=== PATIENT | female | born 1960 | race Caucasian/White ===

== ENCOUNTER → 2016-12-07 | Outpatient (CLI) | payer BC ==
[~2016-12-07] MED LIST: ACET-2222 PO; ALPR0.5T7 PO; BUTA1CAP17 PO; BUTA1CAP3; CALC-656 PO; CYAN100071 PO; DCS100C PO; DICY20TA10 PO; ESTR1TAB24 PO; ESTR2TAB PO; FLUC200T5 PO; HYDR200T PO; HYDR200T46; IBP800T PO; LEVO250T7 PO; LOSA50TA36 PO; MIRA50TA PO; NF-ESOM40C PO; PANT40TA2 PO; PLAQUENIL PO; PROP40TA5; SUCR1TAB36 PO; TROS60CA2 PO; VALA500T4 PO; [UNRECOGNIZED DRUG - OTHER] PO
--- NOTE | 2016-12-07 12:15 | Diagnostic Imaging Report ---
Bilateral screening mammogram The current study was also evaluated with a Computer Aided Detection (CAD) system. INDICATION: Screening. No current complaints stated on the questionnaire. COMPARISON: 08/31/2015. FINDINGS: The breasts are composed of heterogeneously dense parenchyma which may decrease mammographic sensitivity. There are benign-appearing calcifications seen. Allowing for technique and positional differences, no suspicious change is seen. IMPRESSION: Dense breasts with no definite change. ACR BI-RADS Category 2: Benign findings. Result letter will be mailed to the patient. Note: At least 10% of breast cancer is not imaged by mammography. Dictated by: Dictated on workstation # [id number]
== END ==
LOC: RAD 07:17
PROVIDERS: ATTEND Obstetrics & Gynecology
DX: Z12.31 Encounter for screening mammogram for malignant neoplasm of breast (principal)
CPT/HCPCS: 77067

== ENCOUNTER 2016-12-10 12:50 | Observation (INO) | payer BC, OTHER ==
[2016-12-10] VITALS (8 sets, daily range): BP systolic 96–177; BP diastolic 58–99
[~2016-12-10] VITALS: Ht 157.5 cm; Wt 67.2 kg
[~2016-12-10 12:50] MED LIST changes: -ALPR0.5T7 PO; -BUTA1CAP17 PO; -BUTA1CAP3; -CYAN100071 PO; -DICY20TA10 PO; -ESTR2TAB PO; -FLUC200T5 PO; -HYDR200T PO; -HYDR200T46; -LOSA50TA36 PO; -MIRA50TA PO; -PANT40TA2 PO; -PROP40TA5; -SUCR1TAB36 PO
[2016-12-10] MEDS ORDERED: BUTA1CAP3 ×2 (13:05)
[2016-12-10] MEDS ORDERED: DICY20TA10 PO ×2 (13:05)
[2016-12-10] MEDS ORDERED: PROP40TA5 ×2 (13:05)
[2016-12-10] MEDS ORDERED: ALPR0.5T7 PO ×2 (13:05)
[2016-12-10] MEDS ORDERED: HYDR200T46 (13:05)
[2016-12-10 13:13] LABS: BASOPHILS % (AUTO) 1 % (0-10); EOSINOPHILS # (AUTO) 0.1 10^3/uL (0.0-0.3); EOSINOPHILS % (AUTO) 1 % (0-10); LYMPHOCYTES % (AUTO) 14 % (12-44); MEAN CORPUSCULAR HEMOGLOBIN 30 PG (25-34); MEAN CORPUSCULAR HGB CONC 35 G/DL (32-36); MEAN CORPUSCULAR VOLUME 85 FL (80-99); MEAN PLATELET VOLUME 9.2 FL (7.4-10.4); MONOCYTES # (AUTO) 0.4 X 10^3 (0.0-1.0); MONOCYTES % (AUTO) 5 % (0-12); NEUTROPHILS # (AUTO) 5.9 X 10^3 (1.8-7.8); NEUTROPHILS % (AUTO) 80 % (42-75); PLATELET COUNT 288 10^3/uL (130-400); RED BLOOD COUNT 4.49 10^6/uL (4.35-5.85); RED CELL DISTRIBUTION WIDTH 12.3 % (10.0-14.5); WHITE BLOOD COUNT 7.4 10^3/uL (4.3-11.0)
[2016-12-10] MEDS ORDERED: ASPIRIN 81 MG CHEW (CHILDREN'S ASA) PO ONE (13:15)
[2016-12-10] MEDS ORDERED: RX-NITROGLYCERIN 0.4 MG TAB BTL 25'S SL PRN (13:15)
--- NOTE | 2016-12-10 13:21 | ED Chest Pain ---
General Chief Complaint: Chest Pain Stated Complaint: KAYLEE SYLVIA Nursing Triage Note: ARRIVED VIA AMB TO ROOM 10 WITH MULTIPLE COMPLAINTS. STATES SHE HAS HAD CHEST PAIN OFF AND ON FOR 2 WEEKS, VOMITING OF BILE THIS AM, DIZZINESS/LIGHT HEADED FOR 2 WEEKS. AND ALSO STATES SHE IS DISORIENTED AT TIMES. Nursing Sepsis Screen: No Definite Risk Source: patient History of Present Illness Time seen by provider: 13:05 Initial Comments C/O CHEST PAIN OFF AND ON X 2-3 WEEKS IS A PRESSURE IN CENTER OF CHEST, AND OCCASIONALLY RADIATES INTO BACK PAIN HAD BEEN LASTING ABOUT AND HOUR AND THEN WOULD GO AWAY, BUT HAS BEEN CONSTANT AND GETTING WORSE SINCE 0800 YESTERDAY NOTHING WORSENS OR IMPROVES PAIN RATES PAIN 6/10 AT WORST, IS 4/10 NOW NO SHORTNESS OF BREATH NO PALPITATIONS NO DIZZINESS, BUT STATES SHE "FEELS DISORIENTED-LIKE I COULDN'T GET MY FOCUS" NO SWELLING IN LEGS/ FEET OR PAIN IN CALVES, AND NO RECENT TRAVEL NO SWEATS HAS HAD NAUSEA AND VOMITING SINCE 10 AM TODAY--VOMITED X 4-5 TODAY HAD 1 EPISODE OF DIARRHEA YESTERDAY AND 1 SMALL DIARRHEA STOOL TODAY NO ABDOMINAL PAIN C/O NUMBNESS AND TINGLING TO HANDS AND FEET OFF AND ON FOR A COUPLE OF WEEKS ALSO NO PRIOR HISTORY OF SIMILAR SYMPTOMS BEFORE [address] LAZO 3 WEEKS AGO AND BP MEDICATION DOSE WAS DECREASED BY HALF, BECAUSE OF THE ABOVE SYMPTOMS PT HAS LUPUS AND IS ON PLAQUENIL PCP: DR. LAZO Allergies and Home Medications Allergies Coded Allergies: No Known Drug Allergies (Unverified , 08/23/11) Home Medications Alprazolam 0.5 Mg Tablet, #30 (Reported) Butalbital/Aspirin/Caffeine 1 Each Capsule, #90 (Reported) Butalbital/Aspirin/Caffeine 1 Each Capsule, 2 EACH PO UD, (Reported) Cyanocobalamin (Vitamin B-12) 1,000 Mcg Tablet.er, 1,000 MCG PO DAILY, (Reported ) Dicyclomine HCl 20 Mg Tablet, #90 (Reported) Esomeprazole Mag Trihydrate 40 Mg Capsule.dr, 1 CAP PO DAILY, (Reported) Estradiol 1 Mg Tablet, 2 MG PO DAILY, (Reported) Estradiol 2 Mg Tablet, 2 MG PO DAILY, (Reported) Fluconazole 200 Mg Tablet, 200 MG PO DAILY, (Reported) Mirabegron 50 Mg Tab.er.24h, 50 MG PO DAILY, (Reported) Propranolol HCl 40 Mg Tablet, #30 (Reported) [Plaquenil] , 200 MG PO BID, (Reported) Review of Systems Constitutional: see HPI, No chills, No diaphoresis, malaise, other (DECREASED APPETITE FOR A COUPLE OF DAYS) Respiratory: No Symptoms Reported, Denies Cough, Denies Orthopnea, Denies Shortness of Air, Denies Wheezing Cardiovascular: See HPI, Chest Pain, Denies Edema, Denies Irregular Heart Rate , Denies Lightheadedness, Denies Palpitations, Denies Syncope Gastrointestinal: See HPI, Denies Abdominal Pain, Diarrhea, Nausea, Poor Appetite, Denies Poor Fluid Intake, Denies Vomiting Genitourinary: No Symptoms Reported Musculoskeletal: see HPI, back pain Skin: no symptoms reported Psychiatric/Neurological: See HPI, Paresthesia Endocrine: No Symptoms Reported Hematologic/Lymphatic: No Symptoms Reported Past Kqavtzp-Knpcjh-Wjlnlp Hx Patient Social History Alcohol Use: Rarely Uses Recreational Drug Use: No Smoking Status: Never a Smoker Recent Foreign Travel: No Contact w/Someone Who Travel: No Recent Infectious Disease Expo: No Recent Hopitalizations: No Surgeries HX Surgeries: Yes (HYST/BSO; BLADDER SLING; RIGHT FOOT SURGERY) Surgeries: Bladder Surgery, Gallbladder, Hysterectomy, Oophorectomy, Orthopedic Respiratory Hx Respiratory Disorders: No Cardiovascular Hx Cardiac Disorders: Yes Cardiac Disorders: Hypertension Neurological Hx Neurological Disorders: Yes Neurological Disorders: Headaches /Migraines Reproductive System Hx Reproductive Disorders: Yes (CYSTOCELE) Sexually Transmitted Disease: No MEDIA SENIOR RECRUITER History: Hysterectomy Genitourinary Hx Genitourinary Disorders: Yes (MEGGAN) Gastrointestinal Hx Gastrointestinal Disorders: Yes Gastrointestinal Disorders: Gastroesophageal Reflux Musculoskeletal Hx Musculoskeletal Disorders: Yes (LUPUS) Endocrine Hx Endocrine Disorders: Yes Endocrine Disorders: Lupus HEENT HX ENT Disorders: No Cancer Hx Cancer: No Psychosocial Hx Psychiatric Problems: No Blood Transfusions Hx Blood Disorders: No Physical Exam Vital Signs Vital Sign - Last 12Hours 12/10/16 12:50 Temp 98.5 Pulse 91 Resp 16 B/P (MAP) 145/94 Pulse Ox 95 O2 Delivery Room Air Capillary Refill : Less Than 3 Seconds General Appearance: No Apparent Distress, WD/WN, Anxious HEENT: PERRL/EOMI Neck: Full Range of Motion, Normal Inspection, Non Tender, Supple, No Carotid Bruit, No JVD Respiratory: Chest Non Tender, Normal Breath Sounds, No Accessory Muscle Use, No Respiratory Distress Cardiovascular: Regular Rate, Rhythm, No Edema, No Gallop, No JVD, No Murmur, Normal Peripheral Pulses Gastrointestinal: Normal Bowel Sounds, No Organomegaly, No Pulsatile Mass, Non Tender, Soft Extremity: Normal Capillary Refill, Normal Inspection, Normal Range of Motion, Non Tender, No Calf Tenderness, No Pedal Edema Neurologic/Psychiatric: Alert, Oriented x3, No Motor/Sensory Deficits, media coordinator II- XII Norm as Tested, Other (ANXIOUS) Skin: Normal Color, Warm/Dry Progress/Results/Core Measures Results/Orders Lab Results Laboratory Tests Test 12/10/16 13:06 Range/Units White Blood Count 7.4 4.3-11.0 10^3/uL Red Blood Count 4.49 4.35-5.85 10^6/uL Hemoglobin 13.4 11.5-16.0 G/DL Hematocrit 38 35-52 % Mean Corpuscular Volume 85 80-99 FL Mean Corpuscular Hemoglobin 30 25-34 PG Mean Corpuscular Hemoglobin Concent 35 32-36 G/DL Red Cell Distribution Width 12.3 10.0-14.5 % Platelet Count 288 130-400 10^3/uL Mean Platelet Volume 9.2 7.4-10.4 FL Neutrophils (%) (Auto) 80 H 42-75 % Lymphocytes (%) (Auto) 14 12-44 % Monocytes (%) (Auto) 5 0-12 % Eosinophils (%) (Auto) 1 0-10 % Basophils (%) (Auto) 1 0-10 % Neutrophils # (Auto) 5.9 1.8-7.8 X 10^3 Lymphocytes # (Auto) 1.0 1.0-4.0 X 10^3 Monocytes # (Auto) 0.4 0.0-1.0 X 10^3 Eosinophils # (Auto) 0.1 0.0-0.3 10^3/uL Basophils # (Auto) 0.0 0.0-0.1 10^3/uL Prothrombin Time 12.2 12.2-14.7 SEC INR Comment 0.9 0.8-1.4 Activated Partial Thromboplast Time 26 24-35 SEC Sodium Level 138 135-145 MMOL/L Potassium Level 3.7 3.6-5.0 MMOL/L Chloride Level 103 98-107 MMOL/L Carbon Dioxide Level 24 21-32 MMOL/L Anion Gap 11 5-14 MMOL/L Blood Urea Nitrogen 11 7-18 MG/DL Creatinine 0.78 0.60-1.30 MG/DL Estimat Glomerular Filtration Rate > 60 BUN/Creatinine Ratio 14 Glucose Level 95 70-105 MG/DL Calcium Level 9.6 8.5-10.1 MG/DL Magnesium Level 1.9 1.8-2.4 MG/DL Total Bilirubin 0.4 0.1-1.0 MG/DL Aspartate Amino Transf (AST/SGOT) 19 5-34 U/L Alanine Aminotransferase (ALT/SGPT) 17 0-55 U/L Alkaline Phosphatase 93 40-136 U/L Total Creatine Kinase 73 29-168 U/L Creatine Kinase MB 1.6 <6.6 NG/ML Troponin I < 0.30 <0.30 NG/ML B-Type Natriuretic Peptide 63.5 <100.0 PG/ML Total Protein 7.3 6.4-8.2 GM/DL Albumin 4.3 3.2-4.5 GM/DL Amylase Level 82 25-125 U/L Lipase 13 8-78 U/L My Orders Orders - CINDILEVY K DO Amylase (12/10/16 13:04) Cbc With Automated Diff (12/10/16 13:04) Comprehensive Metabolic Panel (12/10/16 13:04) Creatine Kinase (12/10/16 13:04) Creatine Kinase Mb (12/10/16 13:04) Lipase (12/10/16 13:04) Partial Thromboplastin Time (12/10/16 13:04) Protime With Inr (12/10/16 13:04) Troponin I (12/10/16 13:04) Chest 1 View, Ap/Pa Only (12/10/16 13:04) O2 (12/10/16 13:04) Ekg Tracing (12/10/16 13:04) Aspirin Chewable Tablet (Baby Aspirin Ch (12/10/16 13:15) Rx-Nitroglycerin Sl Tabs (Rx-Nitrostat S (12/10/16 13:15) BNP (12/10/16 13:04) Monitor-Rhythm Ecg Trace Only (12/10/16 13:04) Saline Lock/Iv-Start (12/10/16 13:04) Magnesium (12/10/16 13:04) Ketorolac Injection (Toradol Injection) (12/10/16 13:40) Ct Angio Chest W (12/10/16 13:59) Medications Given in ED Current Medications Medications Dose Ordered Sig/Yovanny Route Start Time Stop Time Status Last Admin Dose Admin Aspirin 324 mg ONCE ONCE PO 12/10/16 13:15 12/10/16 13:16 DC 12/10/16 13:19 324 MG Nitroglycerin 0.4 mg UD PRN SL 12/10/16 13:15 12/10/16 13:20 0.4 MG Vital Signs/I&O Vital Sign - Last 12Hours 12/10/16 12:50 Temp 98.5 Pulse 91 Resp 16 B/P (MAP) 145/94 Pulse Ox 95 O2 Delivery Room Air Blood Pressure Mean: 111 Progress Note : Progress Note GIVEN NTG X 1--STATES INITIALLY IT MADE HER PAIN WORSE, THEN PAIN WENT BACK DOWN TO WHERE IT STARTED AT 4/10. GIVEN TORADOL WITH RESOLUTION OF PAIN AND NAUSEA ECG Initial ECG Impression Time: 13:02 Initial ECG Rate: 86 Initial ECG Rhythm: Normal Sinus Initial ECG Comparisson: No Previous ECG Available Diagnostic Imaging Comments CXR--NO ACUTE PROCESS CT CHEST ANGIOGRAM--NO ACUTE PROCESS, PER RADIOLOGIST REPORT @ 1532 Reviewed: Reviewed by Me Departure Communication Progress Notes 1505--SPOKE WITH DR. GIRARD, ACCEPTS PT FOR ADMIT. WOULD LIKE CARDIOLOGY CONSULTED 8898--SPOKE WITH DR. CALIXTO FOR CARDIOLOGY CONSULT Impression Impression: Primary Impression: Chest pain Disposition: ADMITTED INPATIENT Condition: Improved Decision to Admit Reason: Admit from ER (General) Decision to Admit/Date: Dec 10, 2016 Time/Decision to Admit Time: 15:05 Departure-Patient Inst. Referrals: LA LAZO MD (PCP/Family) Primary Care Physician LEVY PUENTE DO Dec 10, 2016 13:21
[2016-12-10 13:30] LABS: INR 0.9 (0.8-1.4); PROTHROMBIN TIME PATIENT 12.2 SEC (12.2-14.7)
[2016-12-10] MEDS ORDERED: KETOROLAC 30 MG/ML VIAL IVP STA (13:40)
[2016-12-10 13:44] LABS: ALANINE AMINOTRANSFERASE 17 U/L (0-55); ALBUMIN 4.3 GM/DL (3.2-4.5); AMYLASE 82 U/L (25-125); ANION GAP 11 MMOL/L (5-14); ASPARTATE AMINO TRANSFERASE 19 U/L (5-34); BILIRUBIN,TOTAL 0.4 MG/DL (0.1-1.0); BLOOD UREA NITROGEN 11 MG/DL (7-18); BUN/CREATININE RATIO 14; CALCIUM 9.6 MG/DL (8.5-10.1); CARBON DIOXIDE 24 MMOL/L (21-32); CHLORIDE 103 MMOL/L (98-107); CREATINE KINASE 73 U/L (29-168); CREATININE SERUM 0.78 MG/DL (0.60-1.30); GFR ESTIMATED > 60; GLUCOSE 95 MG/DL (70-105); LIPASE 13 U/L (8-78); MAGNESIUM 1.9 MG/DL (1.8-2.4); POTASSIUM 3.7 MMOL/L (3.6-5.0); SODIUM 138 MMOL/L (135-145); TOTAL PROTEIN 7.3 GM/DL (6.4-8.2)
[2016-12-10 13:51] LABS: TROPONIN I < 0.30 NG/ML (<0.30)
--- NOTE | 2016-12-10 14:11 | Diagnostic Imaging Report ---
INDICATION: Chest pain for a few weeks. TECHNIQUE: Single view chest 1:39 PM. CORRELATION STUDY: 05/22/2013 FINDINGS: The heart size, mediastinal configuration and pulmonary vascularity are within normal limits. The lungs are clear with no consolidating infiltrate. There is no significant effusion or pneumothorax. IMPRESSION: 1. Negative portable chest. Dictated by: Dictated on workstation # [id number]
[2016-12-10] MEDS ORDERED: NS 100 ML (IVPB) BAG IV ONE (14:15)
[2016-12-10] MEDS ORDERED: IOHEXOL 350 MG/ML 150 ML (OMNIPAQUE 350) VIAL IV ONE (14:15)
--- NOTE | 2016-12-10 15:21 | Diagnostic Imaging Report ---
PROCEDURE: CT angiography of the chest with contrast. TECHNIQUE: Multiple contiguous axial images were obtained through the chest after uneventful bolus administration of intravenous contrast. Reconstructed CTA MIP acquisitions were also performed. INDICATION: Intermittent chest pain x2 weeks. Increasing severity recently and constant today. CORRELATION STUDY: Chest radiograph 12/10/2016. FINDINGS: Pulmonary arteries demonstrate normal contrast filling. The thoracic aorta unremarkable without filling defect or aneurysm. Heart size upper limits of normal. No pathologically enlarged mediastinal lymph nodes. A few shoddy lymph nodes are present. There is also very slight soft tissue prominence of the hilar structures. Lung martínez are clear. Likely some areas of fibrosis or atelectasis about the lingula adjacent to fissure plane. Visualized portion of upper abdomen unremarkable. There may be some degree of fatty infiltration of the liver parenchyma. Osseous structures without acute findings. IMPRESSION: Negative for pulmonary embolism. No CT evidence for acute abnormality of the chest. Dictated by: Dictated on workstation # [id number]
[2016-12-10] MEDS ORDERED: ENOXAPARIN 80 MG/0.8 ML (LOVENOX) SYR SC ONE (15:45)
--- NOTE | 2016-12-10 16:35 | Consultation-Cardiology ---
HPI-Cardiology Cardiology Consultation Date of Consultation 12/10/16 Date of Admission Time Seen by Provider: 16:30 Indication: chest pain HPI 56 years old lady with history of irritable bowel syndrome, gastroesophageal reflux disease, has been having recurrent episodes of chest pain for the last month described it as dull achiness in the retrosternal area radiating to the back associated with mild numbness in her arm and lightheadedness. Yesterday had pain persisted the whole day and recurred this morning, came into the emergency room and responded to Toradol. Feeling better at this time, denied any active pain. Denied any radiation to the neck or shoulders, no associated shortness of breath or palpitation, had mild lightheadedness and dizziness with the episodes. Patient has a strong family history of heart disease, last cardiac workup was done in 2007. Home Medications & Allergies Allergies: Coded Allergies: No Known Drug Allergies (Unverified , 08/23/11) Home Medication List Reviewed: Yes HDA-Mqrbnk-Jagtrz Hx Patient Social History Marital Status: Alcohol Use: Rarely Uses Recreational Drug Use: No Smoking Status: Never a Smoker Recent Foreign Travel: No Recent Infectious Disease Expo: No Recent Hopitalizations: No Past Medical History Past medical history as discussed below Family Medical History Family Medical Hx Strong family history of heart disease including her father and brother Constitutional: see HPI, malaise, weakness EENTM: no symptoms reported, see HPI Respiratory: see HPI, No cough, No dyspnea on exertion, No hemoptysis, No orthopnea, No phlegm, No short of breath, No stridor, No wheezing, No other Cardiovascular: see HPI, chest pain, No edema, No Hx of Intervention, No palpitations, No syncope, No vascular heart diseas, No other Gastrointestinal: see HPI, heartburn, nausea, vomiting Genitourinary: no symptoms reported, see HPI Musculoskeletal: see HPI, joint pain, muscle pain Skin: see HPI Psychiatric/Neurological: No Symptoms Reported, See HPI Reviewed Test Results Reviewed Test Results Lab Laboratory Tests Test 12/10/16 13:06 Range/Units White Blood Count 7.4 4.3-11.0 10^3/uL Red Blood Count 4.49 4.35-5.85 10^6/uL Hemoglobin 13.4 11.5-16.0 G/DL Hematocrit 38 35-52 % Mean Corpuscular Volume 85 80-99 FL Mean Corpuscular Hemoglobin 30 25-34 PG Mean Corpuscular Hemoglobin Concent 35 32-36 G/DL Red Cell Distribution Width 12.3 10.0-14.5 % Platelet Count 288 130-400 10^3/uL Mean Platelet Volume 9.2 7.4-10.4 FL Neutrophils (%) (Auto) 80 H 42-75 % Lymphocytes (%) (Auto) 14 12-44 % Monocytes (%) (Auto) 5 0-12 % Eosinophils (%) (Auto) 1 0-10 % Basophils (%) (Auto) 1 0-10 % Neutrophils # (Auto) 5.9 1.8-7.8 X 10^3 Lymphocytes # (Auto) 1.0 1.0-4.0 X 10^3 Monocytes # (Auto) 0.4 0.0-1.0 X 10^3 Eosinophils # (Auto) 0.1 0.0-0.3 10^3/uL Basophils # (Auto) 0.0 0.0-0.1 10^3/uL Prothrombin Time 12.2 12.2-14.7 SEC INR Comment 0.9 0.8-1.4 Activated Partial Thromboplast Time 26 24-35 SEC Sodium Level 138 135-145 MMOL/L Potassium Level 3.7 3.6-5.0 MMOL/L Chloride Level 103 98-107 MMOL/L Carbon Dioxide Level 24 21-32 MMOL/L Anion Gap 11 5-14 MMOL/L Blood Urea Nitrogen 11 7-18 MG/DL Creatinine 0.78 0.60-1.30 MG/DL Estimat Glomerular Filtration Rate > 60 BUN/Creatinine Ratio 14 Glucose Level 95 70-105 MG/DL Calcium Level 9.6 8.5-10.1 MG/DL Magnesium Level 1.9 1.8-2.4 MG/DL Total Bilirubin 0.4 0.1-1.0 MG/DL Aspartate Amino Transf (AST/SGOT) 19 5-34 U/L Alanine Aminotransferase (ALT/SGPT) 17 0-55 U/L Alkaline Phosphatase 93 40-136 U/L Total Creatine Kinase 73 29-168 U/L Creatine Kinase MB 1.6 <6.6 NG/ML Troponin I < 0.30 <0.30 NG/ML B-Type Natriuretic Peptide 63.5 <100.0 PG/ML Total Protein 7.3 6.4-8.2 GM/DL Albumin 4.3 3.2-4.5 GM/DL Amylase Level 82 25-125 U/L Lipase 13 8-78 U/L Physical Exam Vital Signs Vital Sign - Last 12Hours 12/10/16 12:50 Temp 98.5 Pulse 91 Resp 16 B/P (MAP) 145/94 Pulse Ox 95 O2 Delivery Room Air Capillary Refill : Less Than 3 Seconds General Appearance: No Apparent Distress, WD/WN Eyes: Bilateral Eye EOMI, Bilateral Eye Normal Inspection, Bilateral Eye PERRL HEENT: PERRL/EOMI, TMs Normal, Normal ENT Inspection, Pharynx Normal Neck: Full Range of Motion, Normal Inspection, Non Tender, Supple, Carotid Bruit Respiratory: Chest Non Tender, Lungs Clear, Normal Breath Sounds, No Accessory Muscle Use, No Respiratory Distress Cardiovascular: Regular Rate, Rhythm, No Edema, No Gallop, No JVD, No Murmur, Normal Peripheral Pulses Gastrointestinal: Normal Bowel Sounds, No Organomegaly, No Pulsatile Mass, Non Tender, Soft Back: Normal Inspection, No CVA Tenderness, No Vertebral Tenderness Extremity: Normal Capillary Refill, Normal Inspection, Normal Range of Motion, Non Tender, No Calf Tenderness, No Pedal Edema Neurologic/Psychiatric: Alert, Oriented x3, No Motor/Sensory Deficits, Normal Mood/Affect Skin: Normal Color, Warm/Dry Lymphatic: No Adenopathy A/P-Cardiology Admission Diagnosis Chest pain nonspecific etiology Migraine headache Hypertension Gastroesophageal reflux disease Abnormal EKG Assessment/Plan Chest pain nonspecific etiology, atypical in presentation, EKG showed sinus rhythm with right axis deviation, right ventricular hypertrophy pattern. Nonspecific T wave abnormality noted diffusely. First set of cardiac enzymes are normal, I will continue monitoring and start her on Lovenox and aspirin for now. Hypertension, restart home medication and monitor blood pressure. History of migraine headache. Continue to monitor Gastroesophageal reflux disease, maintained on Nexium. Continue to monitor Irritable bowel syndrome Systemic Lupus erythematous Strong family history of heart disease History of cholecystectomy. Clinical Quality Measures AMI/AHF: ASA po Prior to arrival: TIM Jama MD Dec 10, 2016 16:35
[2016-12-10] MEDS ORDERED: PANTOPRAZOLE 40 MG (PROTONIX) TAB PO NR (16:45)
[2016-12-10] MEDS ORDERED: ENOXAPARIN 100 MG/1 ML (LOVENOX) SYR SC SCH (16:45)
[2016-12-10] MEDS ORDERED: ENOXAPARIN 80 MG/0.8 ML (LOVENOX) SYR SC SCH (17:00)
[2016-12-10] MEDS ORDERED: NITROGLYCERIN SUBLINGUAL 0.4 MG TAB (NITROSTAT) SL PRN (20:30)
[2016-12-10] MEDS ORDERED: morphine INJ 4 MG/ML 1 ML (VIAL/SYRINGE) IV PRN (20:30)
[2016-12-10] MEDS: PROPRANOLOL 20 MG (INDERAL) TABLET PO SCH (21:19)
[2016-12-10] MEDS ORDERED: BUTA1CAP17 PO ×2 (23:44)
[2016-12-10] MEDS ORDERED: MIRA50TA PO ×2 (23:44)
[2016-12-10] MEDS ORDERED: FLUC200T5 PO ×2 (23:44)
[2016-12-10] MEDS ORDERED: CYAN100071 PO ×2 (23:44)
[2016-12-10] MEDS ORDERED: ESTR2TAB PO ×2 (23:44)
[2016-12-11] VITALS: BP 125/84
[2016-12-11 04:00] VITALS: BP 114/74
[2016-12-11 04:45] LABS: BASOPHILS # (AUTO) 0.1 10^3/uL (0.0-0.1); BASOPHILS % (AUTO) 2 % (0-10); EOSINOPHILS # (AUTO) 0.2 10^3/uL (0.0-0.3); EOSINOPHILS % (AUTO) 5 % (0-10); LYMPHOCYTES # (AUTO) 1.6 X 10^3 (1.0-4.0); LYMPHOCYTES % (AUTO) 30 % (12-44); MEAN CORPUSCULAR HEMOGLOBIN 30 PG (25-34); MEAN CORPUSCULAR HGB CONC 35 G/DL (32-36); MEAN CORPUSCULAR VOLUME 86 FL (80-99); MEAN PLATELET VOLUME 9.4 FL (7.4-10.4); MONOCYTES # (AUTO) 0.5 X 10^3 (0.0-1.0); MONOCYTES % (AUTO) 10 % (0-12); NEUTROPHILS # (AUTO) 2.7 X 10^3 (1.8-7.8); NEUTROPHILS % (AUTO) 53 % (42-75); PLATELET COUNT 241 10^3/uL (130-400); RED BLOOD COUNT 4.17 10^6/uL (4.35-5.85); RED CELL DISTRIBUTION WIDTH 12.2 % (10.0-14.5); WHITE BLOOD COUNT 5.1 10^3/uL (4.3-11.0)
[2016-12-11 05:21] LABS: ALANINE AMINOTRANSFERASE 15 U/L (0-55); ALBUMIN 3.8 GM/DL (3.2-4.5); ANION GAP 11 MMOL/L (5-14); ASPARTATE AMINO TRANSFERASE 16 U/L (5-34); BILIRUBIN,TOTAL 0.4 MG/DL (0.1-1.0); BLOOD UREA NITROGEN 11 MG/DL (7-18); BUN/CREATININE RATIO 14; CALCIUM 9.3 MG/DL (8.5-10.1); CARBON DIOXIDE 25 MMOL/L (21-32); CHLORIDE 103 MMOL/L (98-107); CHOLESTEROL 177 MG/DL (< 200); CREATININE SERUM 0.81 MG/DL (0.60-1.30); DIRECT LDL 105 MG/DL (1-129); GFR ESTIMATED > 60; GLUCOSE 90 MG/DL (70-105); POTASSIUM 3.2 MMOL/L (3.6-5.0); SODIUM 139 MMOL/L (135-145); TOTAL PROTEIN 6.4 GM/DL (6.4-8.2); TRIGLYCERIDES 210 MG/DL (<150); VLDL CHOLESTEROL 42 MG/DL (5-40)
[2016-12-11 05:42] LABS: THYROID STIMULATING HORMONE 1.68 UIU/ML (0.35-4.94); TROPONIN I < 0.30 NG/ML (<0.30)
[2016-12-11] MEDS: PROPRANOLOL 20 MG (INDERAL) TABLET PO SCH (06:35)
[2016-12-11] MEDS ORDERED: PANTOPRAZOLE 40 MG (PROTONIX) TAB PO SCH (07:00)
[2016-12-11 08:37] VITALS: BP 126/80
--- NOTE | 2016-12-11 08:57 | Cardiology Progress Note ---
Subjective Date Seen by Provider: Dec 11, 2016 Time Seen by Provider: 08:55 Subjective/Events-last exam patient is feeling better, had mild chest pain earlier, described it as burning sensation in the retrosternal area, no shortness of breath, no other associated symptoms. Review of Systems General: No Chills, No Night Sweats, No Fatigue, No Malaise, No Appetite, No Other HEENT: No Head Aches, No Visual Changes, No Eye Pain, No Ear Pain, No Dysphasia , No Sinus Congestion, No Post Nasal Drip, No Sore Throat, No Other Pulmonary: No Dyspnea, No Cough, No Pleuritic Chest Pain, No Other Cardiovascular: Chest Pain, No: Edema, Lt Headedness, Orthopnea, Other, Palpitations, Paroxysmal Noc. Dyspnea Objective-Cardiology Exam Last Set of Vital Signs Vital Signs 12/11/16 08:37 Temp 98.7 Pulse 72 Resp 12 B/P (MAP) 126/80 Pulse Ox 96 O2 Delivery Room Air Capillary Refill : Less Than 3 Seconds I&O Bad tableGeneral: Alert, Oriented X3, Cooperative HEENT: Atraumatic, PERRLA Neck: Supple, No JVD, No Thyromegaly Lungs: Clear to Auscultation, Normal Air Movement Heart: Regular Rate, Normal S1, Normal S2, No Murmurs Abdomen: Normal Bowel Sounds, Soft, No Tenderness, No Hepatosplenomegaly, No Masses Extremities: No Clubbing, No Cyanosis, No Edema, Normal Pulses, No Tenderness/ Swelling Skin: No Rashes, No Breakdown, No Significant Lesion Neuro: Normal Gait, Normal Speech, Strength at 5/5 X4 Ext, Normal Tone, Sensation Intact Psych/Mental Status: Mental Status NL, Mood NL Results Lab Laboratory Tests 12/10/16 13:06 12/11/16 03:40 A/P-Cardiology Admission Diagnosis Chest pain nonspecific etiology Migraine headache Hypertension Gastroesophageal reflux disease Abnormal EKG Assessment/Plan Chest pain nonspecific etiology, atypical in presentation, EKG showed sinus rhythm with right axis deviation, right ventricular hypertrophy pattern. Nonspecific T wave abnormality noted diffusely, cardiac enzymes are negative, feeling better, it appear to be more of atypical pain. We discussed the management plan recommended stress test as an outpatient. Patient had history of gastroesophageal reflux disease, did not have any workup for the last 9 years , recommended reevaluation with EGD. I offered the patient to keep her here versus returning as an outpatient tomorrow for stress test, patient requested to go home. Hypertension, Continue to monitor blood pressure, continue home medications History of migraine headache. Continue to monitor Gastroesophageal reflux disease, maintained on Nexium. Continue to monitor Irritable bowel syndrome Systemic Lupus erythematous Strong family history of heart disease History of cholecystectomy. Clinical Quality Measures AMI/AHF: ASA po Prior to arrival: No DVT/VTE Risk/Contraindication: Risk Factor Score Per Nursin RFS Level Per Nursing on Admit: 1=Low/No VTE PPX TIM CALIXTO MD Dec 11, 2016 08:57
[2016-12-11] MEDS ORDERED: ENOXAPARIN 80 MG/0.8 ML (LOVENOX) SYR SC SCH (09:00)
[2016-12-11] MEDS ORDERED: ASPIRIN E.C. 81 MG (ECOTRIN) TAB PO SCH (09:00)
[2016-12-11] MEDS ORDERED: ASPIRIN E.C. 325 MG (ECOTRIN) TABLET PO SCH (09:00)
--- NOTE | 2016-12-11 09:01 | Clinic Account Progress/Dx ---
Clinic Account Progress/Dx DIAGNOSIS: Date Seen by Provider: Dec 11, 2016 Time Seen by Provider: 09:01 Diagnosis Anterior chest wall pain Hypertension Systemic lupus erythematous Abnormal EKG Family history of heart disease TIM CALIXTO MD Dec 11, 2016 09:01
--- NOTE | 2016-12-11 10:55 | Short Stay Summary-Hospitalist ---
HPI History of Present Illness: HPI/Chief Complaint Patient not seen, Cardiology evaluated the patient and placed note and DC patient. Date Seen 12/11/16 Time Seen by Provider: 00:00 Attending Physician Lana Delgado Floyd R MD Referring Physician Date of Admission Dec 10, 2016 at 15:35 Home Medications & Allergies Home Medications Reviewed patient Home Medication Reconciliation Form Allergies Allergies Coded Allergies No Known Drug Allergies (Unverified08/23/11) Past Unrhwon-Uowkrn-Yzgpyc Hx Patient Social History Marrital Status: Alcohol Use: Denies Use Recreational Drug Use: No Smoking Status: Never a Smoker Physical Abuse Screen: No Sexual Abuse: No Recent Foreign Travel: No Contact w/other who traveled: No Recent Hopitalizations: No Recent Infectious Disease Expo: No Seasonal Allergies Seasonal Allergies: No Surgeries HX Surgeries: Yes (HYST/BSO; BLADDER SLING; RIGHT FOOT SURGERY) Surgeries: Bladder Surgery, Gallbladder, Hysterectomy, Oophorectomy, Orthopedic Respiratory Hx Respiratory Disorders: No Cardiovascular Hx Cardiovascular Disorders: Yes Cardiac Disorders: Hypertension Neurological Hx Neurological Disorders: Yes Neurological Disorders: Headaches /Migraines Reproductive System Hx Reproductive Disorders: Yes (CYSTOCELE) Sexually Transmitted Disease: No Genitourinary Hx Genitourinary Disorders: Yes (MEGGAN) Gastrointestinal Hx Gastrointestinal Disorders: Yes Gastrointestinal Disorders: Gastroesophageal Reflux, Chronic Diarrhea, Gall Bladder Disease, Irritable Bowel Musculoskeletal Hx Musculoskeletal Disorders: Yes (LUPUS) Endocrine Hx Endocrine Disorders: Yes Endocrine Disorders: Lupus HEENT HX ENT Disorders: No Cancer Hx Cancer: No Psychosocial Hx Psychiatric Problems: No Integumentary Skin/Integumentary Disorders: Psoriasis Blood Transfusions Hx Blood Disorders: No Review of Systems Constitutional: see HPI Physical Exam Physical Exam Vital Signs Vital Sign - Last 12Hours 12/10/16 12:50 Temp 98.5 Pulse 91 Resp 16 B/P (MAP) 145/94 Pulse Ox 95 O2 Delivery Room Air Capillary Refill : Less Than 3 Seconds General Appearance: Other (not examined) Results Results/Procedures Lab Laboratory Tests 12/10/16 13:06 12/11/16 03:40 Short Stay Diagnosis Discharge Diagnosis-Short Stay Admission Diagnosis chest pain Final Discharge Diagnosis chest pain Conclusion Plan DC per Cardiology EST scheduled Clinical Quality Measures AMI/AHF: ASA po Prior to arrival: No DVT/VTE Risk/Contraindication: Risk Factor Score Per Nursin RFS Level Per Nursing on Admit: 1=Low/No VTE PPX LANA DELGADO DO Dec 11, 2016 10:55
--- OUTSIDE RECORDS SUMMARY | 2016-12-13 09:32 | XMS REPORT | Continuity of Care Document ---
Author Author [facility] Organization [facility] Address Unknown Phone Unavailable Allergies Active Description Code Type Severity Reaction Onset Reported/Identified Relationship to Patient Clinical Status Yes No Known Drug Allergies [id number] Drug Allergy Unknown N/ A 08/23/2011 Medications Problems Date Dx Coded Attending Type Code Diagnosis Diagnosed By 05/26/2014 MORGAN SANCHEZ MD, Ot V76.12 09/16/2015 MORGAN SACNHEZ MD, Ot Z12.31 01/01/2016 MORGAN SANCHEZ MD, Ot Z12.31 ENCNTR SCREEN MAMMOGRAM FOR MALIGNANT NE 12/07/2016 MORGAN SANCHEZ MD, Ot Z12.31 ENCNTR SCREEN MAMMOGRAM FOR MALIGNANT NE 12/08/2016 MORGAN SANCHEZ MD, Ot Z12.31 ENCNTR SCREEN MAMMOGRAM FOR MALIGNANT NE 12/10/2016 MORGAN SANCHEZ MD, Ot Z12.31 ENCNTR SCREEN MAMMOGRAM FOR MALIGNANT NE 12/10/2016 MORGAN SANCHEZ MD, Ot Z12.31 ENCNTR SCREEN MAMMOGRAM FOR MALIGNANT NE Procedures Results Test Result Range Complete blood count (CBC) with automated white blood cell (WBC) differential - 12/10/16 13:06 Blood leukocytes automated count (number/volume) 7.4 10*3/ uL 4.3-11.0 Blood erythrocytes automated count (number/volume) 4.49 10*6 /uL 4.35-5.85 Venous blood hemoglobin measurement (mass/volume) 13.4 g/dL 11.5-16.0 Blood hematocrit (volume fraction) 38 % 35-52 Automated erythrocyte mean corpuscular volume 85 [foz_us] 80-99 Automated erythrocyte mean corpuscular hemoglobin (mass per erythrocyte) 30 pg 25-34 Automated erythrocyte mean corpuscular hemoglobin concentration measurement ( mass/volume) 35 g/dL 32-36 Automated erythrocyte distribution width ratio 12.3 % 10.0-14.5 Automated blood platelet count (count/volume) 288 10*3/uL 130-400 Automated blood platelet mean volume measurement 9.2 [foz_us ] 7.4-10.4 Automated blood neutrophils/100 leukocytes 80 % 42-75 Automated blood lymphocytes/100 leukocytes 14 % 12-44 Blood monocytes/100 leukocytes 5 % 0-12 Automated blood eosinophils/100 leukocytes 1 % 0-10 Automated blood basophils/100 leukocytes 1 % 0-10 Blood neutrophils automated count (number/volume) 5.9 10*3 1.8-7.8 Blood lymphocytes automated count (number/volume) 1.0 10*3 1.0-4.0 Blood monocytes automated count (number/volume) 0.4 10*3 0.0-1.0 Automated eosinophil count 0.1 10*3/uL 0.0-0.3 Automated blood basophil count (count/volume) 0.0 10*3/uL 0.0-0.1 PT panel in platelet poor plasma by coagulation assay - 12/10/16 13:06 Prothrombin time (PT) in platelet poor plasma by coagulation assay 12.2 s 12.2-14.7 INR in platelet poor plasma or blood by coagulation assay 0.9 0.8-1.4 Activated partial thromboplastin time (aPTT) in platelet poor plasma bycoagulation assay - 12/10/16 13:06 Activated partial thromboplastin time (aPTT) in platelet poor plasma bycoagulation assay 26 s 24-35 Comprehensive metabolic panel - 12/10/16 13:06 Serum or plasma sodium measurement (moles/volume) 138 mmol/ L 135-145 Serum or plasma potassium measurement (moles/volume) 3.7 mmol/L 3.6-5.0 Serum or plasma chloride measurement (moles/volume) 103 mmol /L 98-107 Carbon dioxide 24 mmol/L 21-32 Serum or plasma anion gap determination (moles/volume) 11 mmol/L 5-14 Serum or plasma urea nitrogen measurement (mass/volume) 11 mg/dL 7-18 Serum or plasma creatinine measurement (mass/volume) 0.78 mg /dL 0.60-1.30 Serum or plasma urea nitrogen/creatinine mass ratio 14 NRG Serum or plasma creatinine measurement with calculation of estimated glomerular filtration rate > NRG Serum or plasma glucose measurement (mass/volume) 95 mg/dL 70-105 Serum or plasma calcium measurement (mass/volume) 9.6 mg/dL 8.5-10.1 Serum or plasma total bilirubin measurement (mass/volume) 0.4 mg/dL 0.1-1.0 Serum or plasma alkaline phosphatase measurement (enzymatic activity/volume) 93 U/L 40-136 Serum or plasma aspartate aminotransferase measurement (enzymatic activity/ volume) 19 U/L 5-34 Serum or plasma alanine aminotransferase measurement (enzymatic activity/volume ) 17 U/L 0-55 Serum or plasma protein measurement (mass/volume) 7.3 g/dL 6.4-8.2 Serum or plasma albumin measurement (mass/volume) 4.3 g/dL 3.2-4.5 Magnesium - 12/10/16 13:06 Magnesium 1.9 mg/dL 1.8-2.4 Serum or plasma creatine kinase measurement (enzymatic activity/volume) - 12/10 13:06 Serum or plasma creatine kinase measurement (enzymatic activity/volume) 73 U/L 29-168 Serum or plasma creatine kinase MB measurement (enzymatic activity/volume) - 13:06 Serum or plasma creatine kinase MB measurement (enzymatic activity/volume) 1.6 ng/mL <6.6 Serum or plasma troponin i.cardiac measurement (mass/volume) - 12/10/16 13:06 Serum or plasma troponin i.cardiac measurement (mass/volume) < ng/mL <0.30 Serum or plasma lithium measurement (moles/volume) - 12/10/16 13:06 BNP level 63.5 pg/mL <100.0 Serum or plasma amylase measurement (enzymatic activity/volume) - 12/10/16 13: 06 Serum or plasma amylase measurement (enzymatic activity/volume) 82 U/L 25-125 Lipase - 12/10/16 13:06 Lipase 13 U/L 8-78 Serum or plasma troponin i.cardiac measurement (mass/volume) - 12/10/16 20:10 Serum or plasma troponin i.cardiac measurement (mass/volume) < ng/mL <0.30 Encounters ACCT No. Visit Date/Time Discharge Status Pt. Type Provider Facility Loc./Unit Complaint [id number] 05/06/2014 14:22:00 2013 23:59:59 CLS Outpatient LAURA SCHAEFER, MORGAN [facility] RAD [id number] 05/22/2013 11:42:00 2012 23:59:59 CLS Outpatient [id number] 04/12/2013 13:27:00 2012 23:59:59 CLS Outpatient [id number] 12/18/2012 13:02:00 2012 23:59:59 CLS Outpatient [id number] 12/10/2016 15:35:00 ACT Inpatient MARIELY GIRARD DO [facility] ICU CHEST PAIN [id number] 12/07/2016 07:17:00 ACT Outpatient MORGAN SANCHEZ MD [facility] RAD SCREENING [id number] 08/31/2015 14:37:00 ACT Outpatient MORGAN SANCHEZ MD [facility] RAD SCREENING
--- OUTSIDE RECORDS SUMMARY | 2016-12-13 09:48 | XMS REPORT | Continuity of Care Document ---
Author Author [facility] Organization [facility] Address Unknown Phone Unavailable Allergies Active Description Code Type Severity Reaction Onset Reported/Identified Relationship to Patient Clinical Status Yes No Known Drug Allergies [id number] Drug Allergy Unknown N/ A 08/23/2011 Medications Problems Date Dx Coded Attending Type Code Diagnosis Diagnosed By 05/26/2014 MORGAN SANCHEZ MD, Ot V76.12 09/16/2015 MORGAN SANCHEZ MD, Ot Z12.31 01/01/2016 MORGAN SANCHEZ MD, [...] Status Pt. Type Provider Facility Loc./Unit Complaint [id number] 05/06/2014 14:22:00 2013 23:59:59 CLS Outpatient LAURA SCHAEFER, MORGAN [facility] RAD [id number] 05/22/2013 11:42:00 2012 23:59:59 CLS Outpatient [id number] 04/12/2013 13:27:00 2012 23:59:59 CLS Outpatient [id number] 12/18/2012 13:02:00 2012 23:59:59 CLS Outpatient [id number] 12/10/2016 15:35:00 ACT Inpatient MARIELY GIRARD DO [facility] ICU CHEST PAIN [id number] 12/07/2016 07:17:00 ACT Outpatient MORGAN SANCHEZ MD [facility] RAD SCREENING [id number] 08/31/2015 14:37:00 ACT Outpatient MORGAN SANCHEZ MD [facility] RAD SCREENING
[2017-01-17] MEDS ORDERED: PANT40TA2 PO (10:35)
[2017-01-17] MEDS ORDERED: SUCR1TAB36 PO (10:35)
== END 2016-12-11 08:59 | disposition home or self-care (01) ==
LOC: EDUNIT# 12:50 → ER 12:52 → UNDOADMOB 15:35 → ICU 15:35 → UNDODISOB 12-11 10:20
PROVIDERS: ADMIT Internal Medicine; ATTEND Internal Medicine
DX: R07.9 Chest pain, unspecified (principal); R94.31 Abnormal electrocardiogram [ECG] [EKG]; I10 Essential (primary) hypertension; G43.909 Migraine, unspecified, not intractable, without status migrainosus; K21.9 Gastro-esophageal reflux disease without esophagitis; K58.9 Irritable bowel syndrome, unspecified; L93.0 Discoid lupus erythematosus; Z79.899 Other long term (current) drug therapy
CPT/HCPCS: 36415; 71010; 71275; 80053; 80061; 82150; 82550; 82553; 83690; 83735; 83880; 84443; 84484; 85025; 85027; 85610; 85730; 93005; 93041; 96374

== ENCOUNTER → 2016-12-12 | Outpatient (CLI) | payer BC, OTHER ==
[~2016-12-12] VITALS: Ht 157.5 cm; Wt 68.0 kg
[~2016-12-12] MED LIST changes: +ALPR0.5T7 PO; +BUTA1CAP17 PO; +BUTA1CAP3; +CATHETER FLUSH 10 ML SYR IV PRN; +CYAN100071 PO; +DICY20TA10 PO; +ESTR2TAB PO; +FLUC200T5 PO; +HYDR200T PO; +HYDR200T46; +LOSA50TA36 PO; +MIRA50TA PO; +PANT40TA2 PO; +PROP40TA5; +SUCR1TAB36 PO
[2016-12-12 08:58] VITALS: BP 145/78
[2016-12-12 09:04] VITALS: BP 157/89
[2016-12-12 09:10] VITALS: BP 154/90
[2016-12-12 09:12] VITALS: BP 124/89
[2016-12-12 09:14] VITALS: BP 132/88
[2016-12-12 09:16] VITALS: BP 123/86
--- NOTE | 2016-12-12 14:21 | STRESS TEST ---
PROCEDURE PHYSICIAN: TIM CALIXTO DATE OF PROCEDURE: 12/12/2016 EXERCISE MYOVIEW STRESS TEST REPORT: REFERRING PHYSICIAN: Dr. Marino BASELINE HEART RATE: 66 BASELINE BLOOD PRESSURE: 129/75 BASELINE EKG: Sinus rhythm with nonspecific T wave abnormality. IN SUMMARY: The patient was injected with 10.2 mCi of technetium 99 Myoview and the resting images were obtained. Then the patient started exercising with a baseline heart rate, blood pressure and EKG mentioned above. At minute 5, the patient was injected with 33 mCi of technetium 99 Myoview. She was able to finish a total of 6 minutes on standard Chong protocol, achieving maximum heart rate of 142, which is 87% of maximum expected heart rate. With peak exercise level, EKG was showing minimal nondiagnostic changes. Blood pressure was 154/90. During recovery, heart rate and blood pressure returned to baseline. EKG returned to baseline. The resting and stress images were reviewed and compared in the short axis, horizontal long axis, and vertical long axis views. Review of the images showed good radiotracer uptake with no significant ischemia or infarction. SSS is 1, SDS 1, TID value 1.02. On the gated images, the left ventricle appeared to be normal size with normal contractility. Calculated ejection fraction 60%. IN CONCLUSION: 1. Fair exercise tolerance a total of 6 minutes on standard Chong protocol, achieving 87% of maximum expected heart rate. 2. Appropriate heart rate and blood pressure response to exercise. Returned to baseline during recovery. 3. Minimal nondiagnostic EKG changes with exercise. Returned to baseline during recovery. 4. Good radiotracer uptake with no ischemia or infarction on SPECT images. 5. Normal left ventricular size with normal contractility. Calculated ejection fraction 60%. Job ID: [id number] Dictated Date: 12/12/2016 12:34:05 Wool Brusher Date: 12/12/2016 14:17:07 / donta
== END ==
LOC: CARD 07:13
PROVIDERS: ATTEND Internal Medicine Cardiovascular Disease
DX: R07.89 Other chest pain (principal)
CPT/HCPCS: 78452; 93017

== ENCOUNTER → 2016-12-20 | Outpatient (CLI) | payer BC, OTHER ==
[~2016-12-20] MED LIST changes: -CATHETER FLUSH 10 ML SYR IV PRN
--- NOTE | 2016-12-20 17:25 | Diagnostic Imaging Report ---
PROCEDURE: MR imaging of the brain with and without contrast. TECHNIQUE: Multiplanar, multisequence MR imaging of the brain was performed with and without contrast. INDICATION: Numbness and tingling. 8 mL of Gadavist is administered intravenously. FINDINGS: There is no diffusion restriction to suggest an acute infarct or other diffusion abnormality. There are minimal foci of T2 hyperintense signal in the periventricular location and in the right basal ganglia with no significant mass effect or associated contrast enhancement. This is probably sequela of minimal element of microvascular ischemic changes. There is no brain edema or enhancing mass. No hydrocephalus. No extra-axial fluid collection is seen. The pituitary gland is slightly enlarged measuring the 1.1 cm craniocaudally bulging into the suprasellar cistern, 9 mm anteroposteriorly, and 1 cm in transverse dimension. Although it is bulging into the suprasellar cistern, it does not appear to result in distortion of the suprasellar structures. It is, however, abutting the undersurface of the optic chasm. There is no invasion into the cavernous sinuses and no evidence of encasement of the carotid arteries. When correlated with 02/20/2009 exam, this appears to be present previously with no definitive change. The central vascular flow-voids appear unremarkable. The internal auditory canals and inner ear structures appear unremarkable. There is mucosal thickening seen in the ethmoidal air cells. The orbits appear grossly unremarkable. IMPRESSION: Mild enlargement in the pituitary gland measuring up to 1.1 cm in size is compatible with a pituitary macroadenoma. It is abutting the undersurface of the optic chiasm without compressive effect identified. This is, however, stable from 2009 exam with no significant change. Dictated by: Dictated on workstation # [id number]
== END ==
LOC: RAD 16:18
PROVIDERS: ATTEND Family Medicine
DX: R20.2 Paresthesia of skin (principal)
CPT/HCPCS: 70553

== ENCOUNTER → 2016-12-20 | Outpatient (CLI) | payer BC ==
[~2016-12-20] MED LIST changes: +GADOBUTROL 10 MMOL/10 ML (GADAVIST) VIAL IV ONE
[2016-12-20 09:58] LABS: BASOPHILS # (AUTO) 0.1 10^3/uL (0.0-0.1); BASOPHILS % (AUTO) 1 % (0-10); EOSINOPHILS # (AUTO) 0.4 10^3/uL (0.0-0.3); EOSINOPHILS % (AUTO) 5 % (0-10); LYMPHOCYTES # (AUTO) 1.3 X 10^3 (1.0-4.0); LYMPHOCYTES % (AUTO) 20 % (12-44); MEAN CORPUSCULAR HEMOGLOBIN 30 PG (25-34); MEAN CORPUSCULAR HGB CONC 35 G/DL (32-36); MEAN CORPUSCULAR VOLUME 86 FL (80-99); MEAN PLATELET VOLUME 8.8 FL (7.4-10.4); MONOCYTES # (AUTO) 0.5 X 10^3 (0.0-1.0); MONOCYTES % (AUTO) 8 % (0-12); NEUTROPHILS # (AUTO) 4.3 X 10^3 (1.8-7.8); NEUTROPHILS % (AUTO) 65 % (42-75); PLATELET COUNT 321 10^3/uL (130-400); RED BLOOD COUNT 4.74 10^6/uL (4.35-5.85); RED CELL DISTRIBUTION WIDTH 12.4 % (10.0-14.5); WHITE BLOOD COUNT 6.5 10^3/uL (4.3-11.0)
[2016-12-20 10:22] LABS: ALANINE AMINOTRANSFERASE 18 U/L (0-55); ALBUMIN 4.5 GM/DL (3.2-4.5); ANION GAP 9 MMOL/L (5-14); ASPARTATE AMINO TRANSFERASE 15 U/L (5-34); BILIRUBIN,TOTAL 0.4 MG/DL (0.1-1.0); BLOOD UREA NITROGEN 11 MG/DL (7-18); BUN/CREATININE RATIO 13; CALCIUM 10.1 MG/DL (8.5-10.1); CARBON DIOXIDE 29 MMOL/L (21-32); CHLORIDE 102 MMOL/L (98-107); CREATININE SERUM 0.86 MG/DL (0.60-1.30); GFR ESTIMATED > 60; GLUCOSE 83 MG/DL (70-105); POTASSIUM 4.1 MMOL/L (3.6-5.0); SODIUM 140 MMOL/L (135-145); TOTAL PROTEIN 7.6 GM/DL (6.4-8.2)
[2016-12-20 10:44] LABS: THYROID STIMULATING HORMONE 1.99 UIU/ML (0.35-4.94)
[2016-12-21 15:32] LABS: LYME AB G M 0.04 Index (0.00-0.89)
[2016-12-22 06:52] LABS: LYME AB INTERP Negative (Negative)
== END ==
LOC: LAB 09:35
PROVIDERS: ATTEND Family Medicine
DX: M32.11 Endocarditis in systemic lupus erythematosus (principal)
CPT/HCPCS: 36415; 80053; 84443; 85025; 85652; 86618

== ENCOUNTER 2017-01-10 05:39 | Outpatient (CLI) | payer BC ==
[~2017-01-10] VITALS: Ht 157.5 cm; Wt 68.0 kg
[~2017-01-10 05:39] MED LIST changes: -GADOBUTROL 10 MMOL/10 ML (GADAVIST) VIAL IV ONE; -HYDR200T PO; -LOSA50TA36 PO; -PANT40TA2 PO; -SUCR1TAB36 PO
[2017-01-10] MEDS ORDERED: HYDR200T PO (11:37)
[2017-01-10] MEDS ORDERED: LOSA50TA36 PO (11:40)
== END 2017-01-10 11:38 ==
LOC: PREOP 05:39
PROVIDERS: ATTEND Surgery
DX: Z01.818 Encounter for other preprocedural examination (principal); R07.9 Chest pain, unspecified

== ENCOUNTER 2017-01-17 09:16 | Day surgery (SDC) | payer BC ==
[~2017-01-17 09:16] MED LIST changes: +HYDR200T PO; +LOSA50TA36 PO
[2017-01-17 09:30] VITALS: BP 139/85
[2017-01-17] MEDS ORDERED: LACTATED RINGERS 1,000 ML IV ONE (09:33)
[2017-01-17] MEDS ORDERED: HURRICAINE EXT TUBE (BENZOCAINE) XX ONE (10:00)
[2017-01-17] MEDS ORDERED: LACTATED RINGERS 1,000 ML IV SCH (10:00)
[2017-01-17] MEDS ORDERED: PROPOFOL INJECTION 50 ML IV ONE (10:02)
[2017-01-17] MEDS ORDERED: MIDAZOLAM 2 MG/2 ML (VERSED) VIAL ONE (10:02)
[2017-01-17] MEDS ORDERED: HURRICAINE EXT TUBE (BENZOCAINE) ONE (10:06)
--- NOTE | 2017-01-17 10:11 | Progress Note-Pre Operative ---
Pre-Operative Progress Note H&P Reviewed The H&P was reviewed, patient examined and no changes noted. Date Seen by Provider: Jan 17, 2017 Time Seen by Provider: 10:09 Date H&P Reviewed: Jan 17, 2017 Time H&P Reviewed: 10:10 Pre-Operative Diagnosis: chest pain BRITTNEY KERN DO Jan 17, 2017 10:11
--- NOTE | 2017-01-17 10:34 | Progress Note-Post Operative ---
Post-Operative Progess Note Surgeon (s)/High School Drafting Teacher (s) Surgeon BRITTNEY KERN DO [employer] Drafting Teacher: na Pre-Operative Diagnosis chest pain Post-Operative Diagnosis gastritis, small hiatal hernia Procedure & Operative Findings Date of Procedure 01/17/17 Procedure Performed/Findings egd c biopsy Anesthesia Type per asset coordinator Estimated Blood Loss Estimated blood loss (mL): none Specimens/Packing Specimens Removed antrum BRITTNEY KERN DO Jan 17, 2017 10:34
[2017-01-17] MEDS ORDERED: SUCR1TAB36 PO (10:35)
[2017-01-17] MEDS ORDERED: PANT40TA2 PO (10:35)
--- NOTE | 2017-01-17 10:36 | Discharge Inst-Simple/Standard ---
Discharge Inst-Standard Discharge Medications New, Converted or Re-Newed RX: Transmitted to Pharmacy Patient Instructions/Follow Up Plan of Care/Instructions/FU: 3 weeks Ivon Activity as Tolerated: Yes Discharge Diet: Regular Diet BRITTNEY KERN DO Jan 17, 2017 10:36
[2017-01-17 10:50] VITALS: BP 122/84
--- NOTE | 2017-01-17 11:16 | OPERATIVE REPORT ---
DATE OF SERVICE: 01/17/2017 PREOPERATIVE DIAGNOSIS: Chest pain. POSTOPERATIVE DIAGNOSIS: Gastritis, small hiatal hernia, questionable small healing ulcers of the antrum. PROCEDURE: EGD with biopsy. ANESTHESIA: Per PATIENT SERVICE COORDINATOR. ESTIMATED BLOOD LOSS: None. COMPLICATIONS: None. Biopsy of the antrum. INDICATIONS: The patient is a 56-year-old female who has been having chest pain. She was recommended to have EGD. She understands risks and benefits of procedure and wished to proceed with procedure. Consent was signed on the chart. DESCRIPTION OF PROCEDURE: The patient was taken to the endoscopy suite, placed in the left lateral recumbent position. Timeout was performed. Scope was inserted in mouth, down the esophagus, stomach and into the duodenum without difficulty. There are no polyps, masses or ulcerations within the duodenum. The scope was slowly retracted back in the antrum and the pylorus. Lots of inflammation was present with the appearance of some healing ulcers. Biopsy of the antrum was obtained. Scope was then slowly retracted back with a small benign appearing polyp. Scope was also retroflexed noting a small hiatal hernia. No other pathology was noted. Scope was then returned to its normal position, slowly withdrawn to the distal esophagus which had normal appearance. No polyps, masses or ulcerations. No erythematous changes. Scope was slowly retracted back noting no other pathology. Scope was retracted back until completely removed, noting no other pathology. RECOMMENDATIONS: The patient will be changed to Protonix 40 mg daily and Carafate 1 gram four times a day. We will have her follow up in approximately three weeks to discuss pathology and symptoms at that time. Further recommendations pending pathology and symptoms. Job ID: [id number] DocumentID: [id number] Dictated Date: 01/17/2017 10:39:44 Host/Hostess Ground Date: 01/17/2017 11:16:07 Dictated By: BRITTNEY KERN DO
[2017-01-17 11:20] VITALS: BP 132/82
[2017-01-17 11:35] VITALS: BP 132/82
== END 2017-01-17 11:35 | disposition home or self-care (01) ==
LOC: ENDO 09:16
PROVIDERS: ATTEND Surgery
DX: K29.70 Gastritis, unspecified, without bleeding (principal); K21.9 Gastro-esophageal reflux disease without esophagitis; K44.9 Diaphragmatic hernia without obstruction or gangrene; K31.7 Polyp of stomach and duodenum; I10 Essential (primary) hypertension; M32.9 Systemic lupus erythematosus, unspecified; Z79.899 Other long term (current) drug therapy
CPT/HCPCS: 88305; 88342

== ENCOUNTER → 2018-03-07 | Outpatient (CLI) | payer BC, OTHER ==
[~2018-03-07] MED LIST changes: -HYDR200T PO; +HYDR200T78 PO; -LOSA50TA36 PO; +LOSA50TA7 PO; +PANT40TA2 PO; +SUCR1TAB36 PO
--- NOTE | 2018-03-07 08:54 | Diagnostic Imaging Report ---
INDICATION: Routine screening. COMPARISON: 12/07/2016 and 08/31/2015. TECHNIQUE: 2D and 3D bilateral screening mammography was performed with CAD. FINDINGS: Both breasts remain markedly dense and heterogeneous, limiting the sensitivity of mammography. The parenchymal pattern is stable. No new mass or malignant appearing microcalcifications are seen. There are benign calcifications bilaterally. An intraparenchymal lymph node in the upper outer right breast is stable. The axillae are unremarkable. IMPRESSION: No mammographic features suspicious for malignancy are identified. ACR BI-RADS Category 2: Benign findings. Result letter will be mailed to the patient. Note: At least 10% of breast cancer is not imaged by mammography. Dictated by: Dictated on workstation # [id number]
== END ==
LOC: RAD 07:36
PROVIDERS: ATTEND Obstetrics & Gynecology
DX: Z12.31 Encounter for screening mammogram for malignant neoplasm of breast (principal)
CPT/HCPCS: 77067

== ENCOUNTER 2018-05-03 05:29 | Outpatient (CLI) | payer OTHER ==
[~2018-05-03] VITALS: Ht 157.5 cm; Wt 68.0 kg
[2018-05-03] MEDS ORDERED: NF-ESOM40C PO (09:05)
== END 2018-05-03 09:20 | disposition home or self-care (01) ==
LOC: PREOP 05:29
PROVIDERS: ATTEND Urology
DX: Z01.818 Encounter for other preprocedural examination (principal)

== ENCOUNTER 2018-05-08 07:06 | Day surgery (SDC) | payer OTHER ==
[~2018-05-08] VITALS: Ht 157.5 cm; Wt 71.2 kg
--- OUTSIDE RECORDS SUMMARY | 2018-05-08 07:11 | XMS REPORT | Continuity of Care Document ---
Author Author [facility] Organization [facility] Address Unknown Phone Unavailable Allergies Active Description Code Type Severity Reaction Onset Reported/Identified Relationship to Patient Clinical Status Yes No Known Drug Allergies [id number] Drug Allergy Unknown N/A 08/23/2011 Medications There is no data. Problems Date Dx Coded Attending Type Code [...] Z12.31 ENCNTR SCREEN MAMMOGRAM FOR MALIGNANT NE 12/11/2016 MARIELY GIRARD DO Ot G43.909 MIGRAINE, UNSP, NOT INTRACTABLE, WITHOUT 12/11/2016 DEMETRIUS GIRARD DOI Ot I10 ESSENTIAL (PRIMARY) HYPERTENSION 12/11/2016 DEMETRIUS GIRARD DOI Ot K21.9 GASTRO-ESOPHAGEAL REFLUX DISEASE WITHOUT 12/11/2016 DEMETRIUS GIRARD DOI Ot K58.9 IRRITABLE BOWEL SYNDROME WITHOUT DIARRHE 12/11/2016 MARIELY GIRARD DO Ot L93.0 DISCOID LUPUS ERYTHEMATOSUS 12/11/2016 MARIELY GIRARD DO Ot R07.9 CHEST PAIN, UNSPECIFIED 12/11/2016 MARIELY GIRARD DO Ot R94.31 ABNORMAL ELECTROCARDIOGRAM [ECG] [EKG] 12/11/2016 GIRARD DO, MARIELY Ot Z79.899 OTHER HALFWAY (CURRENT) DRUG THERAPY 12/11/2016 GIRARD DO, MARIELY Ot G43.909 MIGRAINE, UNSP, NOT INTRACTABLE, WITHOUT 12/11/2016 GIRARD DO, MARIELY Ot I10 ESSENTIAL (PRIMARY) HYPERTENSION 12/11/2016 GIRARD DO, MARIELY Ot K21.9 GASTRO-ESOPHAGEAL REFLUX DISEASE WITHOUT 12/11/2016 GIRARD DO, MARIELY Ot K58.9 IRRITABLE BOWEL SYNDROME WITHOUT DIARRHE 12/11/2016 GIRARD DO, MARIELY Ot L93.0 DISCOID LUPUS ERYTHEMATOSUS 12/11/2016 GIRARD DO, MARIELY Ot R07.9 CHEST PAIN, UNSPECIFIED 12/11/2016 GIRARD DO, MARIELY Ot R94.31 ABNORMAL ELECTROCARDIOGRAM [ECG] [EKG] 12/11/2016 GIRARD DO MARIELY Ot 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 12/13/2016 GIRARD DO MARIELY Ot G43.909 MIGRAINE, UNSP, NOT INTRACTABLE, WITHOUT 12/13/2016 GIRARD DO, MARIELY Ot I10 ESSENTIAL (PRIMARY) HYPERTENSION 12/13/2016 GIRARD DO, MARIELY Ot K21.9 GASTRO-ESOPHAGEAL REFLUX DISEASE WITHOUT 12/13/2016 GIRARD DO, MARIELY Ot K58.9 IRRITABLE BOWEL SYNDROME WITHOUT DIARRHE 12/13/2016 GIRARD DO, MARIELY Ot L93.0 DISCOID LUPUS ERYTHEMATOSUS 12/13/2016 GIRARD DO, MARIELY Ot R07.9 CHEST PAIN, UNSPECIFIED 12/13/2016 GIRARD DO, MARIELY Ot R94.31 ABNORMAL ELECTROCARDIOGRAM [ECG] [EKG] 12/13/2016 ERA DO MARIELY Ot 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 12/21/2016 CLIFTON SCHAEFER, LA Boyer Ot M32.11 ENDOCARDITIS IN SYSTEMIC LUPUS ERYTHEMAT 12/26/2016 LAURA SCHAEFER, MORGAN Acuna Ot Z12.31 ENCNTR SCREEN MAMMOGRAM FOR MALIGNANT NE 12/30/2016 MARILY SCHAEFER, TIM Geller Ot R07.89 OTHER CHEST PAIN 01/06/2017 CLIFTON SCHAEFER, LA R Ot M32.11 ENDOCARDITIS IN SYSTEMIC LUPUS ERYTHEMAT 01/06/2017 CLIFTON SCHAEFER, LA Boyer Ot R20.2 PARESTHESIA OF SKIN 01/10/2017 KERN DO, BRITTNEY D Ot R07.9 CHEST PAIN, UNSPECIFIED 01/10/2017 KERN DO, BRITTNEY D Ot Z01.818 ENCOUNTER FOR OTHER PREPROCEDURAL EXAMIN 01/17/2017 KERN DO, BRITTNEY D Ot I10 ESSENTIAL (PRIMARY) HYPERTENSION 01/17/2017 KERN DO, BRITTNEY D Ot K21.9 GASTRO-ESOPHAGEAL REFLUX DISEASE WITHOUT 01/17/2017 KERN DO, BRITTNEY D Ot K29.70 GASTRITIS, UNSPECIFIED, WITHOUT BLEEDING 01/17/2017 KERN DO, BRITTNEY D Ot K31.7 POLYP OF STOMACH AND DUODENUM 01/17/2017 KERN DO, BRITTNEY D Ot K44.9 DIAPHRAGMATIC HERNIA WITHOUT OBSTRUCTION 01/17/2017 KERN DO, BRITTNEY D Ot M32.9 SYSTEMIC LUPUS ERYTHEMATOSUS, UNSPECIFIE 01/17/2017 KERN DO, BRITTNEY D Ot 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 01/18/2017 KERN DO, BRITTNEY D Ot I10 ESSENTIAL (PRIMARY) HYPERTENSION 01/18/2017 KERN DO, BRITTNEY D Ot K21.9 GASTRO-ESOPHAGEAL REFLUX DISEASE WITHOUT 01/18/2017 KERN DO, BRITTNEY D Ot K29.70 GASTRITIS, UNSPECIFIED, WITHOUT BLEEDING 01/18/2017 KERN DO, BRITTNEY D Ot K31.7 POLYP OF STOMACH AND DUODENUM 01/18/2017 KERN DO, BRITTNEY D Ot K44.9 DIAPHRAGMATIC HERNIA WITHOUT OBSTRUCTION 01/18/2017 KERN DO, BRITTNEY D Ot M32.9 SYSTEMIC LUPUS ERYTHEMATOSUS, UNSPECIFIE 01/18/2017 KERN DO BRITTNEY D Ot Z79.899 OTHER HALFWAY (CURRENT) DRUG THERAPY 03/20/2017 LA LAZO MD R Ot R20.2 PARESTHESIA OF SKIN 03/20/2017 MORGAN SANCHEZ MD Ot Z12.31 ENCNTR SCREEN MAMMOGRAM FOR MALIGNANT NE 03/20/2017 MORGAN SANCHEZ MD Ot Z12.31 ENCNTR SCREEN MAMMOGRAM FOR MALIGNANT NE 03/20/2017 MARILY SCHAEFER, TIM Geller Ot R07.89 OTHER CHEST PAIN 03/20/2017 LA LAZO MD R Ot M32.11 ENDOCARDITIS IN SYSTEMIC LUPUS ERYTHEMAT 03/20/2017 SEGLIE MD, LA R Ot R20.2 PARESTHESIA OF SKIN 04/14/2017 TIM CALIXTO MD Ot R07.89 OTHER CHEST PAIN 04/14/2017 LA LAZO MD R Ot R20.2 PARESTHESIA OF SKIN 04/14/2017 MORGAN SANCHEZ MD, Ot Z12.31 ENCNTR SCREEN MAMMOGRAM FOR MALIGNANT NE 04/14/2017 MORGAN SANCHEZ MD, Ot Z12.31 ENCNTR SCREEN MAMMOGRAM FOR MALIGNANT NE 04/14/2017 TIM CALIXTO MD Ot R07.89 OTHER CHEST PAIN 04/14/2017 LA LAZO MD Ot M32.11 ENDOCARDITIS IN SYSTEMIC LUPUS ERYTHEMAT 04/14/2017 LA LAZO MD R Ot R20.2 PARESTHESIA OF SKIN 03/01/2018 MORGAN SANCHEZ MD, Ot Z12.31 ENCNTR SCREEN MAMMOGRAM FOR MALIGNANT NE 03/01/2018 MORGAN SANCHEZ MD, Ot Z12.31 ENCNTR SCREEN MAMMOGRAM FOR MALIGNANT NE 03/01/2018 TIM CALIXTO MD Ot R07.89 OTHER CHEST PAIN 03/01/2018 LA LAZO MD R Ot M32.11 ENDOCARDITIS IN SYSTEMIC LUPUS ERYTHEMAT 03/01/2018 LA LAZO MD R Ot R20.2 PARESTHESIA OF SKIN 03/08/2018 JESSICA NELSON DO S Ot Z12.31 ENCNTR SCREEN MAMMOGRAM FOR MALIGNANT NE 03/21/2018 JESSICA NELSON DO S Ot Z12.31 ENCNTR SCREEN MAMMOGRAM FOR MALIGNANT NE Procedures There is no data. Results Test Result Range Complete blood count (CBC) with automated white blood cell (WBC) differential - 12/10/16 13:06 Blood leukocytes automated count (number/volume) 7.4 10*3/uL 4.3-11.0 Blood erythrocytes automated count (number/volume) 4.49 10*6/uL 4.35-5.85 Venous blood hemoglobin measurement (mass/volume) 13.4 [...] Automated blood platelet mean volume measurement 9.2 [foz_us] 7.4-10.4 Automated blood neutrophils/100 leukocytes 80 % [...] Serum or plasma sodium measurement (moles/volume) 138 mmol/L 135-145 Serum or plasma potassium measurement (moles/volume) 3.7 mmol/L 3.6-5.0 Serum or plasma chloride measurement (moles/volume) 103 mmol/L 98-107 Carbon dioxide 24 mmol/L 21-32 Serum or plasma anion gap determination (moles/volume) 11 mmol/L 5-14 Serum or plasma urea nitrogen measurement (mass/volume) 11 mg/dL 7-18 Serum or plasma creatinine measurement (mass/volume) 0.78 mg/dL 0.60-1.30 Serum or plasma urea nitrogen/creatinine mass [...] or plasma troponin i.cardiac measurement (mass/volume) < ng/ mL <0.30 Serum or plasma lithium measurement (moles/volume) - 12/10/16 13:06 BNP level 63.5 pg/mL <100.0 Serum or plasma amylase measurement (enzymatic activity/volume) - 12/10/16 13: 06 Serum or plasma amylase measurement (enzymatic activity/volume) 82 U /L 25-125 Lipase - 12/10/16 13:06 Lipase 13 U/L 8-78 Serum or plasma troponin i.cardiac measurement (mass/volume) - 12/10/16 20:10 Serum or plasma troponin i.cardiac measurement (mass/volume) < ng/ mL <0.30 Complete blood count (CBC) with automated white blood cell (WBC) differential - 12/11/16 03:40 Blood leukocytes automated count (number/volume) 5.1 10*3/uL 4.3-11.0 Blood erythrocytes automated count (number/volume) 4.17 10*6/uL 4.35-5.85 Venous blood hemoglobin measurement (mass/volume) 12.4 g/dL 11.5-16.0 Blood hematocrit (volume fraction) 36 % 35-52 Automated erythrocyte mean corpuscular volume 86 [foz_us] 80-99 Automated erythrocyte mean corpuscular hemoglobin (mass per erythrocyte) 30 pg 25-34 Automated erythrocyte mean corpuscular hemoglobin concentration measurement ( mass/volume) 35 g/dL 32-36 Automated erythrocyte distribution width ratio 12.2 % 10.0-14.5 Automated blood platelet count (count/volume) 241 10*3/uL 130-400 Automated blood platelet mean volume measurement 9.4 [foz_us] 7.4-10.4 Automated blood neutrophils/100 leukocytes 53 % 42-75 Automated blood lymphocytes/100 leukocytes 30 % 12-44 Blood monocytes/100 leukocytes 10 % 0-12 Automated blood eosinophils/100 leukocytes 5 % 0-10 Automated blood basophils/100 leukocytes 2 % 0-10 Blood neutrophils automated count (number/volume) 2.7 10*3 1.8-7.8 Blood lymphocytes automated count (number/volume) 1.6 10*3 1.0-4.0 Blood monocytes automated count (number/volume) 0.5 10*3 0.0-1.0 Automated eosinophil count 0.2 10*3/uL 0.0-0.3 Automated blood basophil count (count/volume) 0.1 10*3/uL 0.0-0.1 Comprehensive metabolic panel - 12/11/16 03:40 Serum or plasma sodium measurement (moles/volume) 139 mmol/L 135-145 Serum or plasma potassium measurement (moles/volume) 3.2 mmol/L 3.6-5.0 Serum or plasma chloride measurement (moles/volume) 103 mmol/L 98-107 Carbon dioxide 25 mmol/L 21-32 Serum or plasma anion gap determination (moles/volume) 11 mmol/L 5-14 Serum or plasma urea nitrogen measurement (mass/volume) 11 mg/dL 7-18 Serum or plasma creatinine measurement (mass/volume) 0.81 mg/dL 0.60-1.30 Serum or plasma urea nitrogen/creatinine mass ratio 14 NRG Serum or plasma creatinine measurement with calculation of estimated glomerular filtration rate > NRG Serum or plasma glucose measurement (mass/volume) 90 mg/dL 70-105 Serum or plasma calcium measurement (mass/volume) 9.3 mg/dL 8.5-10.1 Serum or plasma total bilirubin measurement (mass/volume) 0.4 mg/dL 0.1-1.0 Serum or plasma alkaline phosphatase measurement (enzymatic activity/volume) 83 U/L 40-136 Serum or plasma aspartate aminotransferase measurement (enzymatic activity/ volume) 16 U/L 5-34 Serum or plasma alanine aminotransferase measurement (enzymatic activity/volume ) 15 U/L 0-55 Serum or plasma protein measurement (mass/volume) 6.4 g/dL 6.4-8.2 Serum or plasma albumin measurement (mass/volume) 3.8 g/dL 3.2-4.5 Serum or plasma troponin i.cardiac measurement (mass/volume) - 12/11/16 03:40 Serum or plasma troponin i.cardiac measurement (mass/volume) < ng/ mL <0.30 Lipid 1996 panel - 12/11/16 03:40 Serum or plasma triglyceride measurement (mass/volume) 210 mg/dL <150 Serum or plasma cholesterol measurement (mass/volume) 177 mg/dL < 200 Serum or plasma cholesterol in HDL measurement (mass/volume) 44 mg/ dL 40-60 Cholesterol in LDL [mass/volume] in serum or plasma by direct assay 105 mg/dL 1-129 Serum or plasma cholesterol in VLDL measurement (mass/volume) 42 mg/ dL 5-40 THYROID STIMULATING HORMONE - 12/11/16 03:40 THYROID STIMULATING HORMONE 1.68 u[iU]/mL 0.35-4.94 Complete blood count (CBC) with automated white blood cell (WBC) differential - 12/20/16 09:50 Blood leukocytes automated count (number/volume) 6.5 10*3/uL 4.3-11.0 Blood erythrocytes automated count (number/volume) 4.74 10*6/uL 4.35-5.85 Venous blood hemoglobin measurement (mass/volume) 14.3 g/dL 11.5-16.0 Blood hematocrit (volume fraction) 41 % 35-52 Automated erythrocyte mean corpuscular volume 86 [foz_us] 80-99 Automated erythrocyte mean corpuscular hemoglobin (mass per erythrocyte) 30 pg 25-34 Automated erythrocyte mean corpuscular hemoglobin concentration measurement ( mass/volume) 35 g/dL 32-36 Automated erythrocyte distribution width ratio 12.4 % 10.0-14.5 Automated blood platelet count (count/volume) 321 10*3/uL 130-400 Automated blood platelet mean volume measurement 8.8 [foz_us] 7.4-10.4 Automated blood neutrophils/100 leukocytes 65 % 42-75 Automated blood lymphocytes/100 leukocytes 20 % 12-44 Blood monocytes/100 leukocytes 8 % 0-12 Automated blood eosinophils/100 leukocytes 5 % 0-10 Automated blood basophils/100 leukocytes 1 % 0-10 Blood neutrophils automated count (number/volume) 4.3 10*3 1.8-7.8 Blood lymphocytes automated count (number/volume) 1.3 10*3 1.0-4.0 Blood monocytes automated count (number/volume) 0.5 10*3 0.0-1.0 Automated eosinophil count 0.4 10*3/uL 0.0-0.3 Automated blood basophil count (count/volume) 0.1 10*3/uL 0.0-0.1 Comprehensive metabolic panel - 12/20/16 09:50 Serum or plasma sodium measurement (moles/volume) 140 mmol/L 135-145 Serum or plasma potassium measurement (moles/volume) 4.1 mmol/L 3.6-5.0 Serum or plasma chloride measurement (moles/volume) 102 mmol/L 98-107 Carbon dioxide 29 mmol/L 21-32 Serum or plasma anion gap determination (moles/volume) 9 mmol/L 5-14 Serum or plasma urea nitrogen measurement (mass/volume) 11 mg/dL 7-18 Serum or plasma creatinine measurement (mass/volume) 0.86 mg/dL 0.60-1.30 Serum or plasma urea nitrogen/creatinine mass ratio 13 NRG Serum or plasma creatinine measurement with calculation of estimated glomerular filtration rate > NRG Serum or plasma glucose measurement (mass/volume) 83 mg/dL 70-105 Serum or plasma calcium measurement (mass/volume) 10.1 mg/dL 8.5-10.1 Serum or plasma total bilirubin measurement (mass/volume) 0.4 mg/dL 0.1-1.0 Serum or plasma alkaline phosphatase measurement (enzymatic activity/volume) 86 U/L 40-136 Serum or plasma aspartate aminotransferase measurement (enzymatic activity/ volume) 15 U/L 5-34 Serum or plasma alanine aminotransferase measurement (enzymatic activity/volume ) 18 U/L 0-55 Serum or plasma protein measurement (mass/volume) 7.6 g/dL 6.4-8.2 Serum or plasma albumin measurement (mass/volume) 4.5 g/dL 3.2-4.5 Erythrocyte sedimentation rate by westergren method - 12/20/16 09:50 Erythrocyte sedimentation rate by westergren method 6 mm 0-30 THYROID STIMULATING HORMONE - 12/20/16 09:50 THYROID STIMULATING HORMONE 1.99 u[iU]/mL 0.35-4.94 Serum Borrelia species antibody assay (units/volume) - 12/20/16 09:50 LYME AB G M 0.04 % 0.00-0.89 Interpretation of Lyme disease antibody assay Negative Negative Encounters ACCT No. Visit Date/Time Discharge Status Pt. Type Provider Facility Loc./Unit Complaint [id number] 03/07/2018 07:36:00 03/07/2018 23:59:59 CLS Outpatient OMAR HOOD JESSICA S [facility] RAD SCREENING [id number] 01/17/2017 09:16:00 01/17/2017 11:35:00 DIS Outpatient KERN BRITTNEY HOOD [facility] ENDO CHEST PAIN [id number] 01/10/2017 05:39:00 01/10/2017 11:38:00 DIS Outpatient BRITTNEY KERN DO [facility] PREOP CHEST PAIN [id number] 12/20/2016 16:18:00 12/20/2016 23:59:59 CLS Outpatient LA LAZO MD [facility] RAD NUMBNESS AND TINGLING R20.2 [id number] 12/20/2016 09:35:00 12/20/2016 23:59:59 CLS Outpatient LA LAZO MD [facility] LAB M32.11 [id number] 12/12/2016 07:13:00 12/12/2016 23:59:59 CLS Outpatient TIM CALIXTO MD [facility] CARD R07.89 [id number] 12/10/2016 17:15:00 12/11/2016 08:59:00 DIS Inpatient MARIELY GIRARD DO [facility] ICU CHEST PAIN [id number] 12/07/2016 07:17:00 12/07/2016 23:59:59 CLS Outpatient MORGAN SANCHEZ MD [facility] RAD SCREENING [id number] 08/31/2015 14:37:00 08/31/2015 23:59:59 CLS Outpatient MORGAN SANCHEZ MD [facility] RAD SCREENING [id number] 05/06/2014 14:22:00 05/06/2014 23:59:59 CLS Outpatient MORGAN SANCHEZ MD [facility] RAD [id number] 05/22/2013 11:42:00 05/22/2013 23:59:59 CLS Outpatient [id number] 04/12/2013 13:27:00 04/12/2013 23:59:59 CLS Outpatient [id number] 12/18/2012 13:02:00 12/18/2012 23:59:59 CLS Outpatient [id number] 05/08/2018 09:00:00 PEN ELIDA Patterson MD [facility] SDC MIXED INCONTINENCE
[2018-05-08 07:15] VITALS: BP 156/87
[2018-05-08] MEDS ORDERED: LACTATED RINGERS 1,000 ML IV PRN (07:22)
[2018-05-08] MEDS ORDERED: cefTRIAXone FOR IV USE 1,000 MG in NS (IVPB) 50 ML IV ONE (07:30)
[2018-05-08] MEDS ORDERED: proPOfol 200 MG/20 ML (DIPRIVAN) VIAL IV ONE (07:49)
[2018-05-08] MEDS ORDERED: LIDOCAINE PF 2% 5 ML (XYLOCAINE) VIAL ONE (07:49)
[2018-05-08] MEDS ORDERED: ONDANSETRON 4 MG/2 ML (SDV) Z0FRAN ONE (07:49)
[2018-05-08] MEDS ORDERED: DEXAMETHASONE 10 MG/ML (DECADRON) 1 ML VIAL ONE (07:49)
[2018-05-08] MEDS ORDERED: fentaNYL INJECTION 100 MCG/2 ML AMP ONE (07:50)
[2018-05-08] MEDS ORDERED: MIDAZOLAM 2 MG/2 ML (VERSED) VIAL ONE (07:50)
[2018-05-08] MEDS ORDERED: SEVOFLURANE (ULTANE) 15 ML INHAL SOLN ONE (07:54)
--- NOTE | 2018-05-08 08:38 | Progress Note-Pre Operative ---
Pre-Operative Progress Note H&P Reviewed The H&P was reviewed, patient examined and no changes noted. Date Seen by Provider: May 08, 2018 Time Seen by Provider: 08:37 Date H&P Reviewed: May 08, 2018 Time H&P Reviewed: 08:37 Pre-Operative Diagnosis: MIXED INCONTINENCE, OAB, AND ISD ELIDA TA MD May 08, 2018 08:38
--- NOTE | 2018-05-08 08:39 | Progress Note-Post Operative ---
Post-Operative Progess Note Surgeon (s)/Mitigation Supervisor (s) Surgeon ELIDA TA MD Mitigation Supervisor: NONE Pre-Operative Diagnosis MIXED INCONTINENCE, OAB, AND ISD Post-Operative Diagnosis SAME Procedure & Operative Findings Date of Procedure 05/08/18 Procedure Performed/Findings MACROPLASTIQUE IMPLANT Anesthesia Type GENERAL Estimated Blood Loss Estimated blood loss (mL): NEGLIGIBLE Specimens/Packing Specimens Removed NONE Packing: NONE ELIDA TA MD May 08, 2018 08:39
--- NOTE | 2018-05-08 08:40 | Discharge Inst-Urology ---
Discharge Inst-Urology Discharge Medications New, Converted, or Re-newed RX: RX on Chart Patient Instructions/Follow Up Plan Please make appointment to been seen in office in 4 weeks. Rest for a week Showers, no bath Keep bowels soft and moving Increase oral fluids for 48 hours and then as needed. Diet as tolerated. If questions or concerns contact your physician Or seek help at emergency department. ELIDA TA MD May 08, 2018 08:40
[2018-05-08] MEDS ORDERED: FAMOTIDINE 20MG/2ML IV (PEPCID) ONE (08:41)
[2018-05-08] MEDS ORDERED: fentaNYL INJECTION 100 MCG/2 ML AMP IVP ONE (09:30)
[2018-05-08] MEDS ORDERED: morphine INJ 10 MG/ML 1ML (SYR OR VIAL) IVP ONE (09:30)
[2018-05-08] MEDS ORDERED: ONDANSETRON 4 MG/2 ML (SDV) Z0FRAN IVP PRN (09:30)
[2018-05-08 10:00] VITALS: BP 134/84
[2018-05-08] MEDS ORDERED: NITR-65 PO (10:11)
[2018-05-08] MEDS ORDERED: PHEN-640 PO (10:11)
[2018-05-08 10:30] VITALS: BP 125/82
[2018-05-08 11:00] VITALS: BP 143/81
[2018-05-08 11:10] VITALS: BP 143/81
--- NOTE | 2018-05-08 14:15 | OPERATIVE REPORT ---
DATE OF SERVICE: 05/08/2018 PREOPERATIVE DIAGNOSES: Mixed urinary incontinence, overactive bladder and intrinsic sphincter deficiency. POSTOPERATIVE DIAGNOSES: Mixed urinary incontinence, overactive bladder and intrinsic sphincter deficiency. OPERATION PERFORMED: Macroplastique implant. SURGEON: Miguel Ta MD. ANESTHESIA: General. COMPLICATIONS: None. DESCRIPTION OF PROCEDURE: Under satisfactory general anesthesia, the patient in lithotomy position, genitalia were prepped and draped in the usual sterile fashion. Cystoscope was introduced into the bladder and Macroplastique implant was injected, a full syringe at the 6 o'clock position and half a syringe in each of the 1 o'clock and 10 o'clock position. There was excellent elevation of the mid urethra with complete coaptation. A manual Valsalva maneuver was performed after filling up the bladder half full and it was negative. Cystoscope was introduced to the anterior bladder. The patient tolerated the procedure well and was sent to recovery room in stable condition. ESTIMATED BLOOD LOSS: None. Instructions were given to her significant other. Job ID: [id number] DocumentID: [id number] Dictated Date: 05/08/2018 09:10:52 Door To Door Selling Agent Date: 05/08/2018 14:15:17 Dictated By: MIGUEL TA MD
--- NOTE | 2018-05-08 14:19 | Anesthesia-General Post-Op ---
General Patient Condition Mental Status/LOC: Same as Preop Cardiovascular: Satisfactory Nausea/Vomiting: Absent Respiratory: Satisfactory Pain: Controlled Complications: Absent Post Op Complications Complications None Follow Up Care/Instructions Patient Instructions None needed. Anesthesia/Patient Condition Patient Condition Patient was seen this morning after surgery and she was doing well, no complaints, stable vital signs, no apparent adverse anesthesia problems. MARGO RICHTER DO May 08, 2018 14:19
== END 2018-05-08 11:25 | disposition home or self-care (01) ==
LOC: SDC 07:06
PROVIDERS: ATTEND Urology
DX: N39.46 Mixed incontinence (principal); N36.42 Intrinsic sphincter deficiency (ISD); N32.81 Overactive bladder; K21.9 Gastro-esophageal reflux disease without esophagitis; I10 Essential (primary) hypertension; M32.9 Systemic lupus erythematosus, unspecified; Z11.2 Encounter for screening for other bacterial diseases; Z79.899 Other long term (current) drug therapy
CPT/HCPCS: 87081

== ENCOUNTER 2018-10-24 10:00 | Outpatient (CLI) | payer OTHER ==
[~2018-10-24] VITALS: Ht 157.5 cm; Wt 70.3 kg
[~2018-10-24 10:00] MED LIST changes: +LOSA50TA63 PO; -LOSA50TA7 PO; +NITR-65 PO; +PHEN-640 PO
[2018-10-24] MEDS ORDERED: OXYB10TA PO (10:20)
== END 2018-10-24 10:42 | disposition home or self-care (01) ==
LOC: PREOP 10:00
PROVIDERS: ATTEND Surgery
DX: Z01.818 Encounter for other preprocedural examination (principal)

== ENCOUNTER → 2018-10-30 | Outpatient (CLI) | payer OTHER ==
[~2018-10-30] MED LIST changes: +OXYB10TA PO
[2018-10-30 08:38] LABS: BASOPHILS # (AUTO) 0.1 10^3/uL (0.0-0.1); BASOPHILS % (AUTO) 2 % (0-10); EOSINOPHILS # (AUTO) 0.2 10^3/uL (0.0-0.3); EOSINOPHILS % (AUTO) 5 % (0-10); HEMATOCRIT 34 % (35-52); HEMOGLOBIN 11.9 G/DL (11.5-16.0); LYMPHOCYTES % (AUTO) 23 % (12-44); MEAN CORPUSCULAR HEMOGLOBIN 29 PG (25-34); MEAN CORPUSCULAR HGB CONC 35 G/DL (32-36); MEAN CORPUSCULAR VOLUME 83 FL (80-99); MEAN PLATELET VOLUME 8.9 FL (7.4-10.4); MONOCYTES # (AUTO) 0.5 X 10^3 (0.0-1.0); MONOCYTES % (AUTO) 11 % (0-12); NEUTROPHILS # (AUTO) 2.6 X 10^3 (1.8-7.8); NEUTROPHILS % (AUTO) 60 % (42-75); PLATELET COUNT 233 10^3/uL (130-400); RED CELL DISTRIBUTION WIDTH 12.8 % (10.0-14.5); WHITE BLOOD COUNT 4.3 10^3/uL (4.3-11.0)
[2018-10-30 08:57] LABS: ALANINE AMINOTRANSFERASE 12 U/L (0-55); ALBUMIN 3.9 GM/DL (3.2-4.5); ALKALINE PHOSPHATASE 74 U/L (40-136); BILIRUBIN,TOTAL 0.3 MG/DL (0.1-1.0); BUN/CREATININE RATIO 14; CARBON DIOXIDE 25 MMOL/L (21-32); CHLORIDE 106 MMOL/L (98-107); CREATININE SERUM 0.78 MG/DL (0.60-1.30); GFR ESTIMATED > 60; GLUCOSE 87 MG/DL (70-105); POTASSIUM 3.7 MMOL/L (3.6-5.0); SODIUM 139 MMOL/L (135-145); TOTAL PROTEIN 6.2 GM/DL (6.4-8.2)
== END ==
LOC: LAB 08:02
PROVIDERS: ATTEND Internal Medicine Rheumatology
DX: M32.19 Other organ or system involvement in systemic lupus erythematosus (principal)
CPT/HCPCS: 36415; 80053; 85025; 86038; 86141

== ENCOUNTER → 2019-02-19 | Outpatient (CLI) | payer OTHER ==
--- NOTE | 2019-02-19 15:21 | Diagnostic Imaging Report ---
INDICATION: Bilateral hip pain. TIME OF EXAM: 01:30 p.m. EXAMINATION: An AP view of the pelvis and multiple views of bilateral hips were obtained. FINDINGS: Glenohumeral alignment is normal bilaterally. Both femoral heads and necks are intact. No fractures are seen. Rami are unremarkable. SI joints and symphysis are non-widened. There is mild sclerosis of the left pubis consistent with osteitis pubis. IMPRESSION: No acute bony abnormality is detected. Dictated by: Dictated on workstation # [id number]
== END ==
LOC: RAD 13:09
PROVIDERS: ATTEND Family Medicine
DX: G89.29 Other chronic pain (principal); M25.551 Pain in right hip; M25.552 Pain in left hip; R13.10 Dysphagia, unspecified
CPT/HCPCS: 73523

== ENCOUNTER → 2019-05-20 | Outpatient (CLI) | payer OTHER ==
--- NOTE | 2019-05-20 09:57 | Diagnostic Imaging Report ---
PROCEDURE: MRI left joint lower extremity without contrast. TECHNIQUE: Multiplanar, multisequence non contrast-enhanced MRI of the left lower extremity was accomplished. INDICATION: Hip pain. FINDINGS: There is heterogeneous and abnormal signal intensity associated with the left hip at and above the level of the greater trochanter involving the distal gluteus medius and minimus tendons, consistent with partial tear of those structures. At least some fibers remain attached to the bone. No significant retraction. No fluid collection or hematoma. There is no evidence for osseous fracture, however there is very mild marrow edema involving the lateral aspect of the greater trochanter. The contralateral right hip abductor group appeared intact. There are arthritic changes to the bilateral hips, symmetric. There are arthritic changes to the SI joints without separation. Pelvic rings and symphysis are intact. No inguinal canal hernia. No pelvic mass or fluid collection. IMPRESSION: Strain and partial tears of the left gluteus medius and minimus tendons with mild contusive-like edema to the greater trochanter. No fracture or retraction. No hematoma. Dictated by: Dictated on workstation # [id number]
--- NOTE | 2019-05-20 11:47 | Diagnostic Imaging Report ---
PROCEDURE: MRI lumbar spine. TECHNIQUE: Multiplanar, multisequence MRI of the lumbar spine was performed without contrast. INDICATION: Back pain, left hip pain. FINDINGS: Lumbar vertebral body heights maintained. Statures normal. The alignment anatomic. The lower cord, the conus and the nerves of the cauda equina are normal. No intradural mass or mass effect. There is normal dispersal of the nerves of the cauda equina. No paravertebral mass, hemorrhage, fluid collection or aneurysm demonstrated. The T12-L1 and L1-L2 levels and discs were normal. L2-L3, there is slight disc desiccation and stature loss with mild anterior osteophyte disc material. The canal, foramina and recesses widely patent. L3-L4: There is slight thickening of ligamenta flava and slight circumferential annular desiccated disc bulge. There was however no significant canal, foraminal or recess stenosis. L4-L5: There is disc desiccation and bulging of disc material posteriorly, minimally flattening the ventral thecal sac but resulting in no substantial degree of canal stenosis. Disc material results in a borderline mild degree of biforaminal narrowing without mindy compression of the exiting or descending nerve roots. The lateral recesses patent. L5-S1: Annular tearing and eccentric bulging of this disc posterior left laterally results in a borderline mild degree of left foraminal stenosis. The right foramen widely patent. The canal and lateral recesses widely patent. IMPRESSION: Borderline mild lower lumbar foraminal stenoses as described. No substantial canal narrowing. Normal alignment. No acute bony abnormality. Dictated by: Dictated on workstation # [id number]
== END ==
LOC: RAD 08:16
PROVIDERS: ATTEND Family Medicine
DX: S76.012A Strain of muscle, fascia and tendon of left hip, initial encounter (principal); M48.061 Spinal stenosis, lumbar region without neurogenic claudication; X58.XXXA Exposure to other specified factors, initial encounter
CPT/HCPCS: 72148; 73721

== ENCOUNTER → 2019-05-20 | Outpatient (CLI) | payer OTHER ==
--- NOTE | 2019-05-20 10:55 | Diagnostic Imaging Report ---
INDICATION: Routine screening. COMPARISON: 03/07/2018 and 12/07/2016. TECHNIQUE: 2D and 3D bilateral screening mammography was performed with CAD. FINDINGS: Both breasts are heterogeneously dense, limiting the sensitivity of mammography. Benign parenchymal and vascular calcifications are again noted. An intraparenchymal lymph node in the outer right breast is stable. No spiculated mass or malignant appearing microcalcifications are seen. The axillae are unremarkable. IMPRESSION: No mammographic features suspicious for malignancy are identified. ACR BI-RADS Category 2: Benign findings. Result letter will be mailed to the patient. Note: At least 10% of breast cancer is not imaged by mammography. Dictated by: Dictated on workstation # [id number]
== END ==
LOC: RAD 08:15
PROVIDERS: ATTEND Nurse Practitioner
DX: Z12.31 Encounter for screening mammogram for malignant neoplasm of breast (principal); Z01.419 Encounter for gynecological examination (general) (routine) without abnormal findings
CPT/HCPCS: 77067

== ENCOUNTER 2019-07-26 13:39 | Outpatient (RCR) | payer OTHER ==
[~2019-07-26 13:39] MED LIST changes: -OXYB10TA PO; +OXYB10TA2 PO
== END 2019-07-26 14:24 | disposition home or self-care (01) ==
PROVIDERS: ATTEND Orthopaedic Surgery
DX: M25.552 Pain in left hip (principal)

== ENCOUNTER → 2020-06-22 | Outpatient (CLI) | payer OTHER ==
[~2020-06-22] MED LIST changes: -OXYB10TA2 PO; +OXYB10TA29 PO
--- NOTE | 2020-06-22 12:41 | Diagnostic Imaging Report ---
INDICATION: Routine screening. COMPARISON: 05/20/2019 and 03/07/2018. TECHNIQUE: 2D and 3D bilateral screening mammography was performed with CAD. FINDINGS: Both breasts are heterogeneously dense, limiting the sensitivity of mammography. Scattered benign calcifications are noted. No spiculated mass or malignant appearing microcalcifications are seen. A benign nodule in the upper outer right breast is stable. The axillae are unremarkable. IMPRESSION: No mammographic features suspicious for malignancy are identified. ACR BI-RADS Category 2: Benign findings. Result letter will be mailed to the patient. Note: At least 10% of breast cancer is not imaged by mammography. Dictated by: Dictated on workstation # [id number]
== END ==
LOC: RAD 08:08
PROVIDERS: ATTEND Surgery
DX: Z12.31 Encounter for screening mammogram for malignant neoplasm of breast (principal)
CPT/HCPCS: 77063; 77067

== ENCOUNTER → 2020-12-01 | Outpatient (CLI) | payer OTHER ==
[~2020-12-01] MED LIST changes: +CEPH500C PO; +ESTR10TA9 PO; +FLUC150T2 PO; +METR-145 PO
== END ==
LOC: RAD
DX: Z53.9 Procedure and treatment not carried out, unspecified reason (principal)

== ENCOUNTER → 2020-12-01 | Outpatient (CLI) | payer OTHER ==
[~2020-12-01] MED LIST changes: -CEPH500C PO; -ESTR10TA9 PO; -FLUC150T2 PO; -METR-145 PO
--- NOTE | 2020-12-01 11:18 | Diagnostic Imaging Report ---
EXAMINATION: Right hand, single view. Right fingers, additional 2 views. COMPARISON: None. HISTORY: 60-year-old female, shut garage door on fingers. FINDINGS: There is no acute fracture. There is no subluxation or dislocation. There is no radiopaque foreign body. The joint spaces are well preserved. IMPRESSION: Unremarkable single view radiograph of the right hand and additional views of the right fingers. Dictated by: Dictated on workstation # [id number]
== END ==
LOC: RAD 09:35
PROVIDERS: ATTEND Nurse Practitioner Family
DX: S67.10XA Crushing injury of unspecified finger(s), initial encounter (principal); X58.XXXA Exposure to other specified factors, initial encounter; Y92.094 Garage of other non-institutional residence as the place of occurrence of the external cause
CPT/HCPCS: 73140

== ENCOUNTER 2020-12-08 06:56 | Outpatient (CLI) | payer OTHER ==
[~2020-12-08] VITALS: Ht 157.5 cm; Wt 67.1 kg
[2020-12-08] MEDS ORDERED: METR-145 PO (12:28)
[2020-12-08] MEDS ORDERED: FLUC150T2 PO (12:28)
[2020-12-08] MEDS ORDERED: CEPH500C PO (12:28)
[2020-12-08] MEDS ORDERED: ESTR10TA9 PO (12:28)
== END 2020-12-08 14:09 | disposition home or self-care (01) ==
LOC: PREOP 06:56
PROVIDERS: ATTEND Surgery
DX: Z01.818 Encounter for other preprocedural examination (principal)

== ENCOUNTER 2020-12-15 10:48 | Day surgery (SDC) | payer OTHER ==
[~2020-12-15] VITALS: Ht 157.5 cm; Wt 67.1 kg
[~2020-12-15 10:48] MED LIST changes: +CEPH500C PO; +ESTR10TA9 PO; +FLUC150T2 PO; +METR-145 PO
[2020-12-15] MEDS ORDERED: LACTATED RINGERS 1,000 ML IV STA (10:56)
[2020-12-15] MEDS ORDERED: LACTATED RINGERS 1,000 ML IV ONE (11:04)
[2020-12-15 11:15] VITALS: BP 124/99
--- NOTE | 2020-12-15 12:35 | Progress Note-Pre Operative ---
Pre-Operative Progress Note H&P Reviewed The H&P was reviewed, patient examined and no changes noted. Date Seen by Provider: Dec 15, 2020 Time Seen by Provider: 12:35 Date H&P Reviewed: Dec 15, 2020 Time H&P Reviewed: 12:35 Pre-Operative Diagnosis: change in bowel habits, diarrhea BRITTNEY KERN DO Dec 15, 2020 12:35
[2020-12-15] MEDS ORDERED: PROPOFOL INJECTION 50 ML IV ONE (12:56)
[2020-12-15 13:35] VITALS: BP 168/69
[2020-12-15 13:40] VITALS: BP 167/89
[2020-12-15] MEDS ORDERED: ONDANSETRON 4 MG/2 ML (SDV) Z0FRAN ONE (13:42)
[2020-12-15 13:45] VITALS: BP 178/84
[2020-12-15] MEDS ORDERED: ONDANSETRON 4 MG/2 ML (SDV) Z0FRAN IVP ONE (13:45)
--- NOTE | 2020-12-15 13:47 | Progress Note-Post Operative ---
Post-Operative Progess Note Surgeon (s)/Hot Tamale Man (s) Surgeon BRITTNEY KERN DO Hot Tamale Man: na Pre-Operative Diagnosis change in bowel habits, diarrhea Post-Operative Diagnosis colon polpys Procedure & Operative Findings Date of Procedure 12/15/20 Procedure Performed/Findings colonoscopy c hot bx polypectomy x 2 and random cold biopsies. Anesthesia Type per loan expeditor Estimated Blood Loss Estimated blood loss (mL): none Specimens/Packing Specimens Removed colon polyps. ileocecal valve, random cold BRITTNEY KERN DO Dec 15, 2020 13:47
--- NOTE | 2020-12-15 13:48 | Discharge Inst-Simple/Standard ---
Discharge Inst-Standard Patient Instructions/Follow Up Plan of Care/Instructions/FU: 2 weeks Ivon Activity as Tolerated: Yes Discharge Diet: Regular Diet BRITTNEY KERN DO Dec 15, 2020 13:48
[2020-12-15 13:50] VITALS: BP_SYST 169; BP_SYST 177; BP_DIAS 81; BP_DIAS 89
--- NOTE | 2020-12-15 14:13 | Anesthesia-General Post-Op ---
MAC Patient Condition Mental Status/LOC: Same as Preop Cardiovascular: Satisfactory Nausea/Vomiting: Absent Respiratory: Satisfactory Pain: Controlled Complications: Absent Post Op Complications Complications None Follow Up Care/Instructions Patient Instructions None needed. Anesthesiology Discharge Order Discharge Order Patient is doing well, no complaints, stable vital signs, no apparent adverse anesthesia problems. No complications reported per nursing. MALENA KRUSE CRNA Dec 15, 2020 14:13
[2020-12-15 14:32] VITALS: BP 177/89
--- NOTE | 2020-12-15 18:36 | OPERATIVE REPORT ---
DATE OF SERVICE: 12/15/2020 PREOPERATIVE DIAGNOSES: Change in bowel habits, diarrhea. POSTOPERATIVE DIAGNOSIS: Colon polyps. PROCEDURE: Colonoscopy with hot biopsy polypectomy x2 and random cold biopsies and cold biopsy of ileocecal valve. SURGEON: Brittney Del Valle DO ANESTHESIA: Per RECREATION THERAPY TEACHER. ESTIMATED BLOOD LOSS: None. COMPLICATIONS: None. INDICATIONS: The patient is a 60-year-old female with change in bowel habits and having diarrhea. She understands risks and benefits of procedure and wished to proceed with procedure. Consent was signed in the chart. DESCRIPTION OF PROCEDURE: The patient was taken to the endoscopy suite, placed in left lateral recumbent position. Timeout was performed. Digital rectal exam was performed. There were no palpable polyps, masses or ulcerations. Scope was inserted in the rectum, advanced all the way to cecum with minimal difficulty. Prep was adequate. The ileocecal valve was intubated and normal appearance of the ileum. Scope was retracted back. Prep was adequate. No polyps, masses or ulcerations within the cecum. At the ileocecal valve, slight change in mucosa questionable. Cold biopsy was obtained. Scope was then slowly retracted back in the ascending colon, a small polyp was present, which hot biopsy polypectomy was performed. Scope was then continuously retracted back. No polyps, masses or ulcerations within the remainder of the ascending colon with hepatic flexure, another polyp was present, which hot biopsy polypectomy was performed. Scope was then continuously retracted back. No polyps, masses or ulcerations within the remainder of the transverse, descending and sigmoid colon. Scope was retracted, random cold biopsies were obtained. Once in the rectum, scope was retroflexed noting no other pathology. Scope was returned to its normal position, slowly withdrawn until completely removed. The patient tolerated procedure well without any complications, taken to recovery room in stable condition. RECOMMENDATIONS: The patient will follow up in the office in 2 weeks to discuss pathology results. The patient will need repeat colonoscopy in 3 to 5 years. Any issues before that be seen at that time. Job ID: [id number] DocumentID: [id number] Dictated Date: 12/15/2020 13:50:34 Jewelry Coater Date: 12/15/2020 18:34:56 Dictated By: BRITTNEY DEL VALLE DO
== END 2020-12-15 15:18 | disposition home or self-care (01) ==
LOC: ENDO 10:48
PROVIDERS: ATTEND Surgery
DX: D12.2 Benign neoplasm of ascending colon (principal); D12.3 Benign neoplasm of transverse colon; K63.89 Other specified diseases of intestine; I10 Essential (primary) hypertension; K21.9 Gastro-esophageal reflux disease without esophagitis; G43.909 Migraine, unspecified, not intractable, without status migrainosus; Z86.011 Personal history of benign neoplasm of the brain; Z79.899 Other long term (current) drug therapy; Z90.49 Acquired absence of other specified parts of digestive tract

== ENCOUNTER → 2021-03-17 | Outpatient (CLI) | payer OTHER ==
--- NOTE | 2021-03-17 13:17 | Diagnostic Imaging Report ---
INDICATION: Lower back pain. COMPARISON: None FINDINGS: Frontal and lateral views of the lumbar spine were obtained. Alignment and vertebral heights are maintained. There is no fracture or destructive process. Mild multilevel degenerative disease is noted in the lumbar spine and consist primarily of lower lumbar spine facet arthropathy. Limited views of the abdomen demonstrate nonobstructive bowel gas pattern. IMPRESSION: 1. No acute fracture or dislocation of the lumbar spine. Dictated by: Dictated on workstation # [id number]
--- NOTE | 2021-03-17 14:04 | Diagnostic Imaging Report ---
Indication: Pain and burning in the lower lumbar region TIME OF EXAM: 12:04 PM Sacrococcygeal alignment appears normal. No fractures are identified. Sacral arcuate lines are intact. SI joints are unremarkable. IMPRESSION: No acute feature detected. Dictated by: Dictated on workstation # [id number]
== END ==
LOC: RAD 11:18
PROVIDERS: ATTEND Internal Medicine
DX: M54.50 Low back pain, unspecified (principal)
CPT/HCPCS: 72100; 72220

== ENCOUNTER → 2021-07-19 | Outpatient (CLI) | payer BC, OTHER ==
[~2021-07-19] MED LIST changes: +DICY20TA PO; -DICY20TA10 PO; -ESTR2TAB PO; +ESTR2TAB3 PO
--- NOTE | 2021-07-20 10:19 | Diagnostic Imaging Report ---
EXAMINATION: Digital mammogram bilateral screening with CAD. INDICATION: Screening. COMPARISON: This study was compared to the prior exams of 06/22/2020, 05/20/2019, and 03/07/2018. PERSONAL HISTORY: At this time, there are no current complaints. TECHNIQUE: Screening digital mammography was performed bilaterally with a Computer Aided Detection (CAD) system. FINDINGS: The fibroglandular tissue in both breasts is heterogeneously dense. This does limit the sensitivity of this exam. Overall, there does not appear to have been any significant change when compared to the prior study. No primary or secondary sign of malignancy is noted. IMPRESSION: There is no radiographic evidence for malignancy. ACR BI-RADS Category 1: Negative. Result letter will be mailed to the patient. Note: At least 10% of breast cancer is not imaged by mammography. Dictated by: Dictated on workstation # [id number]
== END ==
LOC: RAD 08:00
PROVIDERS: ATTEND Surgery
DX: Z12.31 Encounter for screening mammogram for malignant neoplasm of breast (principal)
CPT/HCPCS: 77063; 77067

== ENCOUNTER → 2021-10-18 | Outpatient (CLI) | payer BC ==
[~2021-10-18] MED LIST changes: -FLUC150T2 PO; +FLUC150T41 PO; -FLUC200T5 PO; +FLUC200T9 PO
== END ==
LOC: CARD 11:00
PROVIDERS: ATTEND Internal Medicine Cardiovascular Disease
DX: I10 Essential (primary) hypertension (principal); I25.10 Atherosclerotic heart disease of native coronary artery without angina pectoris
CPT/HCPCS: 93306

== ENCOUNTER → 2021-10-27 | Outpatient (CLI) | payer BC ==
[2021-10-27 16:36] VITALS: BP 156/92
--- NOTE | 2021-10-27 16:36 | Cardiology Stress Test Report ---
Stress Test Report Date of Procedure/Referring: Date of Procedure: October 27, 2021 PCP Johanna Montes MD Admitting Physician Admitting Physician: Attending Physician: Christianne Walton MD Indications: CP Baseline Heart Rate: 75 Baseline Blood Pressure: Blood Pressure Systolic: 156 Blood Pressure Diastolic: 92 Baseline EKG: Baseline EKG: NSR Summary/Conclusion: Summary: In summary, the patient started exercising with a baseline heart rate, blood pressure and EKG mentioned above Patient was able to exercise for a total of 5 minutes on Chong protocol, METs 7 Maximum heart rate 150 Maximum blood pressure 204/90 Stress EKG, Minimal nondiagnostic changes Recovery EKG , Return to baseline Conclusion: 1. Good exercise tolerance for a total of 5 minutes on Chong protocol, 7 METs, achieving 94 percent of maximum expected heart rate 2. Minimal nondiagnostic EKG changes with exercise returned to baseline during recovery 3. No arrhythmia was noted Copy Copies To 1: JOHANNA MONTES MD, BASHAR J MD October 27, 2021 16:36
== END ==
LOC: CARD 14:00
PROVIDERS: ATTEND Internal Medicine Cardiovascular Disease
DX: I49.9 Cardiac arrhythmia, unspecified (principal)
CPT/HCPCS: 93017; 93225; 93226

== ENCOUNTER → 2021-11-26 | Outpatient (CLI) | payer BC ==
--- NOTE | 2021-11-26 16:52 | Diagnostic Imaging Report ---
HAND, 3 VIEWS, BILATERAL INDICATION: Bilateral hand pain COMPARISON: None available. TECHNIQUE: Three views of each hand were obtained for a total of 6 views. FINDINGS: Normal osseous mineralization. No erosions are present. No uniform joint space narrowing or cartilage calcification. No fracture on either side. Additionally, there are no features of avascular necrosis of the lunate on either side. IMPRESSION: 1. No structural changes of inflammatory or crystalline arthropathy. 2. No advanced osteoarthritis. Dictated by: Dictated on workstation # [id number]
== END ==
LOC: RAD 13:43
PROVIDERS: ATTEND Internal Medicine
DX: M79.642 Pain in left hand (principal); M79.641 Pain in right hand

== ENCOUNTER → 2022-08-23 | Outpatient (CLI) | payer BC ==
--- NOTE | 2022-08-23 15:23 | Diagnostic Imaging Report ---
EXAMINATION: 3D bilateral screening mammogram with CAD. INDICATION: Screening. COMPARISON: This study was compared to the prior exams of 07/19/2021, 06/22/2020, and 05/20/2019. PERSONAL HISTORY: At this time, there are no current complaints. FINDINGS: The fibroglandular tissue in both breasts is heterogeneously dense. This does limit the sensitivity of this exam. Overall, there does not appear to have been any significant change when compared to the prior study. No primary or secondary sign of malignancy is noted. IMPRESSION: There is no radiographic evidence for malignancy. ACR BI-RADS Category 1: Negative. Result letter will be mailed to the patient. Note: At least 10% of breast cancer is not imaged by mammography. Dictated by: Dictated on workstation # [id number]
== END ==
LOC: RAD 08:43
PROVIDERS: ATTEND Surgery
DX: Z12.31 Encounter for screening mammogram for malignant neoplasm of breast (principal)
CPT/HCPCS: 77063; 77067

== ENCOUNTER → 2023-05-04 | Outpatient (RCR) | payer BC ==
[~2023-05-04] MED LIST changes: -HYDR200T46; +HYDR200T71
== END | disposition home or self-care (01) ==
PROVIDERS: ATTEND Internal Medicine
DX: M54.50 Low back pain, unspecified (principal); M79.652 Pain in left thigh